=== PATIENT | female | born 1930 | race Caucasian/White ===

== ENCOUNTER 2017-02-06 15:19 | Inpatient (IN) | payer MEDICARE, OTHER ==
[~2017-02-06] VITALS: Ht 165.1 cm; Wt 64.0 kg
[~2017-02-06 15:19] MED LIST: ACCUVITE; ALPRAZOLAM XR0.5 MG PO; AMBIEN 5MG TABLE5 MG PO; AMIODARONE200 MG PO; ANORO IH; ATIVAN 0.50.5 MG/TAB PO; BYSTOLIC10 MG PO; CARDIZEM CD240 MG PO; CELEBREX 200MG200 MG PO; CIPRO 250MG TA250 MG PO; CORDARONE200 MG/TAB PO; COUMADIN; COUMADIN 2MG2 MG/TAB PO; COUMADIN2 MG PO; COZAAR 25MG25 MG/TAB PO; CYMBALTA 20MG20 MG PO; DIGOXIN PO; DILTIAZEM120 MG PO; DIOVAN 12.5 MG-1 TAB PO; DIOVAN HCT 12.51 TA1 PO; DIOVAN80 MG PO; ENALAPRIL2.5 MG PO; FISH OIL CONC1000 MG PO; FLECAINIDE; FLONASE NASAL S16 GM NS; FLUOXETINE10 MG PO; FOSAMAX 70MG TA70 MG PO; FOSAMAX PO; HYZAAR; HYZAAR 12.5 MG-1 TAB PO; IMDUR 60MG60 MG/TAB PO; INCRUSE EL62.5 MCG/A IH; ISORBIDE; K-DUR 10 MEQ T10 MEQ PO; LASIX 20MG TABL20 MG PO; LASIX 40MG TABL40 MG PO; LEVOXYL0.075 MG PO; LOPRESSOR 225 MG/TAB PO; MEPROBAMATE; MEPROBAMATE 400 MG PO; MEPROBAMATE PO; METOPROLOL TART25 MG PO; METOPROLOL25 MG PO; MOBIC7.5 M1 PO; MULTAQ400 MG PO; MULTI VITAMINS1 TAB PO; NASONEX SPRAY17 GM NS; NEXIUM 40MG40 MG PO; NEXIUM40 MG PO; NORCO 325 MG-51 TAB PO; NORVASC 5MG5 MG/TAB PO; OCCUVITE; OCUVITE PO; OCUVITE1 TA1 PO; PAXIL 10MG10 MG PO; PERCOCET 325 MG1 TA2 PO; PRAVACHOL 40MG40 MG PO; PRAVASTATIN40 MG PO; PREMARIN .3MG0.3 MG PO; PREMARIN0.625 MG PO; PROZAC 10MG10 MG PO; RANEXA 500MG T500 MG PO; ROLAIDS 675 MG-1 CT2 PO; RT ADVAIR 228 DISKUS IH; RT ADVAIR 528 DISKUS IH; SYNTHROID 0.0.025 MG PO; SYSTANE 0.3-0.1 EACH OP; TAMBOCOR100 MG PO; TIKOSYN0.25 MG PO; TOPROL XL 25MG25 MG PO; TOPROL XL25 MG PO; TRIAMTERENE AND1 TA1 PO; ULTRAM 50MG TAB50 MG PO; VITAMIN B1 NAT100 MG PO; VITAMIN D32000 I1 PO; WARFARIN SODIUM2 MG PO; XARELTO15 MG PO; XOPENEX HF0.045 MG/A IH; ZANTAC 150MG T150 MG PO; [UNRECOGNIZED DRUG - CODE] PO; [UNRECOGNIZED DRUG - OTHER] PO
[2017-02-06] MEDS ORDERED: COUMADIN 5MG5 MG/TAB PO (15:36)
[2017-02-06] MEDS ORDERED: TOPROL XL 50MG50 MG PO (15:38)
[2017-02-06 16:22] LABS: BASO % 0.2 % (0.0-2.0); GRAN # 11.8 (1.4-6.5); GRAN % 86.1 % (42.2-75.2); HEMOGLOBIN 12.1 g/dl (12.5-16.0); LYMPH # 0.6 (1.2-3.4); LYMPH % 4.1 % (20.0-51.0); MEAN CELL VOLUME 94 fl (80.0-100.0); MEAN CORPUSCULAR HEMOGLOBIN 31 pg (27.0-31.0); MEAN CORPUSCULAR HGB CONC 33 g/dl (33.0-37.0); MEAN PLATELET VOLUME 8.9 fl (7.4-10.4); MONO # 1.2 (0.1-0.6); PLATELET COUNT 228 K/mm3 (130-400); REDCELL DISTRIBUTION WIDTH-CV 14.6 % (11.5-14.5); WHITE BLOOD COUNT 13.7 K/mm3 (4.8-10.8)
[2017-02-06 16:25] LABS: HEMATOCRIT 36.7 % (37.0-47.0)
[2017-02-06 16:30] LABS: INR 2.8 (0.8-3.0); PROTHROMBIN TIME 31.8 SECONDS (9.7-12.8)
[2017-02-06 16:35] LABS: ADJUSTED CALCIUM 9.2 mg/dL (8.4-10.2); CALCIUM 9.2 mg/dL (8.4-10.2); CREATININE, serum 0.85 mg/dL (0.52-1.25); POTASSIUM 4.2 mmol/L (3.4-5.0); TOTAL PROTEIN 7.3 gm/dL (6.4-8.2)
[2017-02-06 17:06] LABS: C-REACTIVE PROTEIN 12.3 mg/dL (0.0-0.9)
[2017-02-06 17:52] LABS: PH 5 (5-8); URINE APPEARANCE Hazy; URINE BACTERIA None Seen /hpf; URINE BILIRUBIN Negative (NEGATIVE); URINE BLOOD 2+ (NEGATIVE); URINE COLOR Amber; URINE GLUCOSE Negative (NEGATIVE); URINE KETONE Trace (NEGATIVE); URINE RBC >50 /hpf; URINE UROBILINOGEN Negative (NEGATIVE)
[2017-02-06 21:05] VITALS: BP 119/68; PULSE 87; TEMP 98.2
[2017-02-06] MEDS ORDERED: RT ADVAIR HFA 412 GM IH (21:54)
[2017-02-06] MEDS ORDERED: ALLEGRA 180MG180 MG PO (21:56)
[2017-02-06] MEDS ORDERED: ELOCON0.1% TP (21:58)
[2017-02-06] MEDS ORDERED: OCUVITE1 TA1 PO (21:59)
[2017-02-06] MEDS ORDERED: COLACE 100100 MG/CAP PO (22:04)
[2017-02-06] MEDS ORDERED: SENNA8.6 MG PO (22:05)
[2017-02-06] MEDS ORDERED: DULCOLAX TAB5 MG PO (22:05)
[2017-02-06] MEDS ORDERED: [UNRECOGNIZED DRUG - OTHER] VG (22:06)
[2017-02-07 04:56] VITALS: BP 149/70; PULSE 94; TEMP 97.3
[2017-02-07 07:23] LABS: MEAN CELL VOLUME 95 fl (80.0-100.0); MEAN CORPUSCULAR HGB CONC 33 g/dl (33.0-37.0); MEAN PLATELET VOLUME 9.5 fl (7.4-10.4); PLATELET COUNT 203 K/mm3 (130-400); PROTHROMBIN TIME 34.1 SECONDS (9.7-12.8); RED BLOOD COUNT 3.61 M/mm3 (4.10-5.30); REDCELL DISTRIBUTION WIDTH-CV 14.8 % (11.5-14.5)
[2017-02-07 07:30] LABS: CALCIUM 8.9 mg/dL (8.4-10.2); CREATININE, serum 0.87 mg/dL (0.52-1.25)
[2017-02-07 07:31] LABS: ADD PATHOLOGY DIFF REVIEW NO; HEMATOCRIT 34.3 % (37.0-47.0); HEMOGLOBIN 11.2 g/dl (12.5-16.0); MEAN CORPUSCULAR HEMOGLOBIN 31 pg (27.0-31.0)
[2017-02-07 08:03] VITALS: BP 151/82; PULSE 84; TEMP 97.2
[2017-02-07 08:23] LABS: ERYTHROCYTE SEDIMENTATION RATE 58 mm/hr (0-30)
[2017-02-07 08:28] LABS: BAND 11 % (0-10); BASOPHIL 1 % (0-2); NEUTROPHILS 76 % (42.0-75.2); PLATELET ESTIMATE NORMAL (NORMAL); TOTAL CELLS COUNTED 100
[2017-02-07 10:24] LABS: SYNOVIAL FL. MONONUCLEAR 8.2 % (0-75); SYNOVIAL FL. POLYMORPHONUCLEAR 91.8 % (0-25); SYNOVIAL FLUID WBC 57268 /mm3 (200-600)
[2017-02-07 10:29] LABS: SYNOVIAL FLUID APPEARANCE CLOUDY; SYNOVIAL FLUID COLOR AMBER
[2017-02-07 11:19] VITALS: BP 124/59; PULSE 91
[2017-02-07 15:17] VITALS: BP 122/60; PULSE 88; TEMP 98.4
[2017-02-07 19:57] VITALS: BP 135/59; PULSE 50; TEMP 98.5
[2017-02-08 00:09] VITALS: BP 146/66; PULSE 97; TEMP 99.8
[2017-02-08 02:55] VITALS: BP 144/89; PULSE 90; TEMP 99.8
[2017-02-08 07:39] LABS: BASO % 0.2 % (0.0-2.0); CALCIUM 8.8 mg/dL (8.4-10.2); CREATININE, serum 0.86 mg/dL (0.52-1.25); EOS % 0.1 % (0-4.0); GRAN # 7.4 (1.4-6.5); GRAN % 74.8 % (42.2-75.2); LYMPH # 0.9 (1.2-3.4); LYMPH % 9.2 % (20.0-51.0); MEAN CELL VOLUME 94 fl (80.0-100.0); MEAN CORPUSCULAR HGB CONC 33 g/dl (33.0-37.0); MEAN PLATELET VOLUME 9.6 fl (7.4-10.4); MONO # 1.5 (0.1-0.6); MONO % 15.1 % (1.7-9.3); PLATELET COUNT 210 K/mm3 (130-400); POTASSIUM 4.2 mmol/L (3.4-5.0); RED BLOOD COUNT 3.57 M/mm3 (4.10-5.30); REDCELL DISTRIBUTION WIDTH-CV 14.8 % (11.5-14.5); WHITE BLOOD COUNT 9.9 K/mm3 (4.8-10.8)
[2017-02-08 08:03] VITALS: BP 155/53; PULSE 89; TEMP 100.1
[2017-02-08 08:27] LABS: HEMATOCRIT 33.7 % (37.0-47.0); MEAN CORPUSCULAR HEMOGLOBIN 31 pg (27.0-31.0)
[2017-02-08 10:31] LABS: INR 2.4 (0.8-3.0); PROTHROMBIN TIME 26.8 SECONDS (9.7-12.8)
[2017-02-08 11:39] VITALS: BP 129/66; PULSE 48; TEMP 97.1
[2017-02-08 16:13] VITALS: BP 145/86; PULSE 63; TEMP 99.2
[2017-02-08 19:14] VITALS: BP 128/74; PULSE 90; TEMP 99.3
[2017-02-09 00:11] VITALS: BP 154/75; PULSE 96; TEMP 99.2
[2017-02-09 03:29] VITALS: BP 140/81; PULSE 104; TEMP 99
[2017-02-09 07:09] LABS: BASO % 0.4 % (0.0-2.0); EOS % 0.1 % (0-4.0); GRAN # 6.3 (1.4-6.5); GRAN % 76.8 % (42.2-75.2); LYMPH # 0.6 (1.2-3.4); LYMPH % 7.7 % (20.0-51.0); MEAN CELL VOLUME 95 fl (80.0-100.0); MEAN CORPUSCULAR HGB CONC 32 g/dl (33.0-37.0); MONO # 1.2 (0.1-0.6); MONO % 14.3 % (1.7-9.3); PLATELET COUNT 236 K/mm3 (130-400); RED BLOOD COUNT 3.44 M/mm3 (4.10-5.30); REDCELL DISTRIBUTION WIDTH-CV 14.6 % (11.5-14.5); WHITE BLOOD COUNT 8.3 K/mm3 (4.8-10.8)
[2017-02-09 07:11] LABS: INR 1.9 (0.8-3.0); PROTHROMBIN TIME 21.4 SECONDS (9.7-12.8)
[2017-02-09 07:18] LABS: HEMATOCRIT 32.7 % (37.0-47.0); HEMOGLOBIN 10.6 g/dl (12.5-16.0); MEAN CORPUSCULAR HEMOGLOBIN 31 pg (27.0-31.0)
[2017-02-09 07:48] VITALS: BP 153/72; PULSE 50; TEMP 98.3
[2017-02-09 11:14] VITALS: BP 179/98; PULSE 105; TEMP 98.2
[2017-02-09 16:09] VITALS: BP 92/76; PULSE 102; TEMP 98.9
[2017-02-09 18:26] VITALS: BP 166/79; PULSE 104
[2017-02-09 20:06] LABS: INR 1.6 (0.8-3.0); PROTHROMBIN TIME 18.4 SECONDS (9.7-12.8)
[2017-02-10] VITALS (10 sets, daily range): BP systolic 127–167; BP diastolic 72–92; PULSE 89–104; TEMP 98–99.4
[2017-02-10 06:36] LABS: INR 1.4 (0.8-3.0); PROTHROMBIN TIME 15.9 SECONDS (9.7-12.8)
[2017-02-10 06:42] LABS: BASO % 0.4 % (0.0-2.0); EOS % 0.4 % (0-4.0); GRAN # 5.6 (1.4-6.5); GRAN % 72.4 % (42.2-75.2); LYMPH # 0.7 (1.2-3.4); LYMPH % 8.8 % (20.0-51.0); MEAN CELL VOLUME 94 fl (80.0-100.0); MEAN CORPUSCULAR HGB CONC 32 g/dl (33.0-37.0); MEAN PLATELET VOLUME 9.5 fl (7.4-10.4); MONO # 1.3 (0.1-0.6); MONO % 17.1 % (1.7-9.3); PLATELET COUNT 242 K/mm3 (130-400); RED BLOOD COUNT 3.38 M/mm3 (4.10-5.30); REDCELL DISTRIBUTION WIDTH-CV 14.6 % (11.5-14.5); WHITE BLOOD COUNT 7.8 K/mm3 (4.8-10.8)
[2017-02-10 06:49] LABS: CALCIUM 8.4 mg/dL (8.4-10.2); CREATININE, serum 0.68 mg/dL (0.52-1.25); MAGNESIUM 1.8 mg/dL (1.6-2.3); POTASSIUM 3.6 mmol/L (3.4-5.0)
[2017-02-10 07:03] LABS: HEMATOCRIT 31.7 % (37.0-47.0); HEMOGLOBIN 10.2 g/dl (12.5-16.0); MEAN CORPUSCULAR HEMOGLOBIN 30 pg (27.0-31.0)
[2017-02-11 03:27] VITALS: BP 122/61; PULSE 94; TEMP 99.1
[2017-02-11 07:59] VITALS: BP 138/71; PULSE 128; TEMP 98.4
[2017-02-11 08:55] LABS: MEAN CELL VOLUME 96 fl (80.0-100.0); MEAN CORPUSCULAR HGB CONC 32 g/dl (33.0-37.0); MEAN PLATELET VOLUME 9.3 fl (7.4-10.4); PLATELET COUNT 291 K/mm3 (130-400); RED BLOOD COUNT 3.26 M/mm3 (4.10-5.30); REDCELL DISTRIBUTION WIDTH-CV 14.6 % (11.5-14.5); WHITE BLOOD COUNT 7.2 K/mm3 (4.8-10.8)
[2017-02-11 08:56] LABS: HEMATOCRIT 31.2 % (37.0-47.0); HEMOGLOBIN 10.1 g/dl (12.5-16.0); MEAN CORPUSCULAR HEMOGLOBIN 31 pg (27.0-31.0)
[2017-02-11 08:57] LABS: ADD PATHOLOGY DIFF REVIEW NO
[2017-02-11 09:09] LABS: INR 1.3 (0.8-3.0)
[2017-02-11 10:29] LABS: ANISOCYTOSIS 1+; EOSINOPHIL 2 % (0-4); NEUTROPHILS 76 % (42.0-75.2); PLATELET ESTIMATE NORMAL (NORMAL); TOTAL CELLS COUNTED 100
[2017-02-11 12:07] VITALS: BP 121/61; PULSE 100
[2017-02-11 16:07] VITALS: BP 128/69; PULSE 88; TEMP 98.9
[2017-02-11 20:00] VITALS: BP 145/84; PULSE 108
[2017-02-11 23:28] LABS: PH 5 (5-8); URINE APPEARANCE Cloudy; URINE BACTERIA Rare /hpf; URINE BILIRUBIN Negative (NEGATIVE); URINE BLOOD Negative (NEGATIVE); URINE COLOR Amber; URINE GLUCOSE Negative (NEGATIVE); URINE KETONE Negative (NEGATIVE); URINE RBC 20-50 /hpf; URINE UROBILINOGEN Negative (NEGATIVE)
[2017-02-12 00:40] VITALS: BP 131/59; PULSE 107; TEMP 97.8
[2017-02-12 04:10] VITALS: BP 125/90; PULSE 115; TEMP 99
[2017-02-12 06:53] LABS: MEAN CELL VOLUME 95 fl (80.0-100.0); MEAN CORPUSCULAR HGB CONC 33 g/dl (33.0-37.0); MEAN PLATELET VOLUME 10.4 fl (7.4-10.4); PLATELET COUNT 202 K/mm3 (130-400); RED BLOOD COUNT 3.25 M/mm3 (4.10-5.30); REDCELL DISTRIBUTION WIDTH-CV 14.6 % (11.5-14.5); WHITE BLOOD COUNT 8.3 K/mm3 (4.8-10.8)
[2017-02-12 06:56] LABS: INR 1.3 (0.8-3.0); PROTHROMBIN TIME 14.5 SECONDS (9.7-12.8)
[2017-02-12 07:00] LABS: HEMATOCRIT 30.8 % (37.0-47.0); HEMOGLOBIN 10.1 g/dl (12.5-16.0); MEAN CORPUSCULAR HEMOGLOBIN 31 pg (27.0-31.0)
[2017-02-12 07:01] LABS: ADD PATHOLOGY DIFF REVIEW NO
[2017-02-12 07:06] LABS: CALCIUM 8.4 mg/dL (8.4-10.2); CREATININE, serum 0.76 mg/dL (0.52-1.25); POTASSIUM 3.5 mmol/L (3.4-5.0)
[2017-02-12 08:28] LABS: BAND 11 % (0-10); EOSINOPHIL 2 % (0-4); NEUTROPHILS 57 % (42.0-75.2); TOTAL CELLS COUNTED 100
[2017-02-12 08:30] LABS: PLATELET ESTIMATE NORMAL (NORMAL)
[2017-02-12 08:44] VITALS: BP 128/60; PULSE 96; TEMP 98.2
[2017-02-12] MEDS ORDERED: NORCO 325 MG-51 TAB PO (13:24)
[2017-02-12] MEDS ORDERED: COZAAR 25MG25 MG/TAB PO (13:24)
[2017-02-12 13:36] VITALS: BP 113/62; PULSE 107; TEMP 98.2
[2017-02-12] MEDS ORDERED: TOPROL XL 50MG50 MG PO (13:46)
[2017-02-12 15:32] VITALS: BP 113/62; PULSE 107; TEMP 98.2
== END 2017-02-12 15:30 | DRG 488 ==
LOC: COL.ER 15:19 → MEDICAL 19:13
PROVIDERS: Emergency Medicine; Family Medicine; Internal Medicine; Orthopaedic Surgery
PROC: 0S9D3ZX Drainage of Left Knee Joint, Percutaneous Approach, Diagnostic (ICD-10-PCS; 2017-02-07)
PROC: 0SBD4ZZ Excision of Left Knee Joint, Percutaneous Endoscopic Approach (ICD-10-PCS; principal; 2017-02-10 07:30)
DX: M00.9 Pyogenic arthritis, unspecified (principal); I50.32 Chronic diastolic (congestive) heart failure; M65.9 Synovitis and tenosynovitis, unspecified; I11.0 Hypertensive heart disease with heart failure; I48.2 Chronic atrial fibrillation; M25.462 Effusion, left knee; M17.12 Unilateral primary osteoarthritis, left knee; Z79.01 Long term (current) use of anticoagulants; I08.3 Combined rheumatic disorders of mitral, aortic and tricuspid valves; I27.2 Other secondary pulmonary hypertension; R40.0 Somnolence; R41.0 Disorientation, unspecified; T42.6X5A Adverse effect of other antiepileptic and sedative-hypnotic drugs, initial encounter; T39.1X5A Adverse effect of 4-Aminophenol derivatives, initial encounter
CPT/HCPCS: 99222-AI; 99232-AI; 99233-AI; 99239; A9284; C1751; J0690; J0696; J1644; J1650; J1940; J2270; J2405; J2704; J3010; J3370; J7030; J7050; J7120

== ENCOUNTER → 2017-02-18 | Outpatient (CLI) | payer MEDICARE, OTHER ==
[~2017-02-18] MED LIST changes: +ALLEGRA 180MG180 MG PO; +COLACE 100100 MG/CAP PO; +COUMADIN 5MG5 MG/TAB PO; +DULCOLAX TAB5 MG PO; +ELOCON0.1% TP; +RT ADVAIR HFA 412 GM IH; +SENNA8.6 MG PO; +TOPROL XL 50MG50 MG PO; +[UNRECOGNIZED DRUG - OTHER] VG
[2017-02-18 05:43] LABS: ALBUMIN 2.7 gm/dL (3.5-5.0); BILIRUBIN,TOTAL 0.6 mg/dL (0.0-1.0); C-REACTIVE PROTEIN 5.9 mg/dL (0.0-0.9); CREATININE, serum 0.82 mg/dL (0.52-1.25); POTASSIUM 4.3 mmol/L (3.4-5.0); TOTAL PROTEIN 5.3 gm/dL (6.4-8.2)
[2017-02-18 05:53] LABS: VANCOMYCIN TROUGH 34.9 ug/mL (7.00-20.00)
== END ==
LOC: ZCOL.LAB 04:00
PROVIDERS: Family Medicine
DX: I10 Essential (primary) hypertension (principal); E03.8 Other specified hypothyroidism; I50.9 Heart failure, unspecified; Z22.322 Carrier or suspected carrier of Methicillin resistant Staphylococcus aureus

== ENCOUNTER → 2017-02-19 | Outpatient (CLI) | payer MEDICARE, OTHER ==
[2017-02-19 06:20] LABS: BASO # 0.1 (0.0-0.2); EOS # 0.3 (0.0-0.7); EOS % 2.9 % (0-4.0); GRAN # 6.3 (1.4-6.5); GRAN % 69.4 % (42.2-75.2); LYMPH # 1.3 (1.2-3.4); LYMPH % 13.8 % (20.0-51.0); MEAN CELL VOLUME 96 fl (80.0-100.0); MEAN CORPUSCULAR HGB CONC 33 g/dl (33.0-37.0); MONO % 11.2 % (1.7-9.3); PLATELET COUNT 539 K/mm3 (130-400); RED BLOOD COUNT 2.96 M/mm3 (4.10-5.30); REDCELL DISTRIBUTION WIDTH-CV 14.5 % (11.5-14.5); WHITE BLOOD COUNT 9.1 K/mm3 (4.8-10.8)
[2017-02-19 06:21] LABS: HEMATOCRIT 28.3 % (37.0-47.0); HEMOGLOBIN 9.4 g/dl (12.5-16.0); MEAN CORPUSCULAR HEMOGLOBIN 32 pg (27.0-31.0)
[2017-02-19 06:33] LABS: ADJUSTED CALCIUM 9.8 mg/dL (8.4-10.2); ALANINE AMINOTRANSFERASE 23 U/L (9-52); ALBUMIN 2.8 gm/dL (3.5-5.0); ALKALINE PHOSPHATASE 81 U/L (50-136); ANION GAP 10 mmol/L (7-16); BILIRUBIN,TOTAL 0.6 mg/dL (0.0-1.0); BLOOD UREA NITROGEN 13 mg/dL (7-17); C-REACTIVE PROTEIN 4.5 mg/dL (0.0-0.9); CALCIUM 8.8 mg/dL (8.4-10.2); CARBON DIOXIDE 25 mmol/L (22-30); CHLORIDE 101 mmol/L (98-107); CREATININE, serum 0.82 mg/dL (0.52-1.25); GLUCOSE 94 mg/dL (74-106); POTASSIUM 4.5 mmol/L (3.4-5.0); SODIUM 137 mmol/L (137-145); TOTAL PROTEIN 5.3 gm/dL (6.4-8.2)
[2017-02-19 06:41] LABS: VANCOMYCIN TROUGH 26.97 ug/mL (7.00-20.00)
[2017-02-19 06:49] LABS: ERYTHROCYTE SEDIMENTATION RATE 80 mm/hr (0-30)
== END ==
LOC: ZCOL.LAB 06:02
PROVIDERS: Family Medicine
DX: J44.9 Chronic obstructive pulmonary disease, unspecified (principal); Z51.81 Encounter for therapeutic drug level monitoring; Z79.890 Hormone replacement therapy

== ENCOUNTER → 2017-02-25 | Outpatient (REF) | LOC: ZCOL.LAB 03:37 | DX: Z01.89 Encounter for other specified special examinations (principal) ==

== ENCOUNTER 2017-02-26 14:02 | Outpatient (CLI) | payer MEDICARE, OTHER ==
[2017-02-26 14:24] VITALS: BP 145/75; PULSE 78; TEMP 97.9
== END 2017-02-26 14:46 | disposition home or self-care (01) ==
LOC: EUO 14:02
DX: M00.9 Pyogenic arthritis, unspecified (principal); Z22.322 Carrier or suspected carrier of Methicillin resistant Staphylococcus aureus

== ENCOUNTER → 2017-02-26 | Outpatient (CLI) | payer MEDICARE, OTHER | LOC: ZCOL.LAB 16:06 | DX: Z01.89 Encounter for other specified special examinations (principal) ==

== ENCOUNTER → 2017-02-26 | Outpatient (REF) ==
[2017-02-26 04:39] LABS: MEAN CELL VOLUME 95 fl (80.0-100.0); MEAN CORPUSCULAR HGB CONC 32 g/dl (33.0-37.0); MEAN PLATELET VOLUME 8.7 fl (7.4-10.4); PLATELET COUNT 412 K/mm3 (130-400); RED BLOOD COUNT 3.09 M/mm3 (4.10-5.30); REDCELL DISTRIBUTION WIDTH-CV 14.6 % (11.5-14.5); WHITE BLOOD COUNT 5.8 K/mm3 (4.8-10.8)
[2017-02-26 04:52] LABS: HEMATOCRIT 29.2 % (37.0-47.0); HEMOGLOBIN 9.3 g/dl (12.5-16.0); MEAN CORPUSCULAR HEMOGLOBIN 30 pg (27.0-31.0)
[2017-02-26 05:05] LABS: ERYTHROCYTE SEDIMENTATION RATE 81 mm/hr (0-30)
== END ==
LOC: ZCOL.LAB 04:36
PROVIDERS: Family Medicine
DX: Z01.89 Encounter for other specified special examinations (principal)

== ENCOUNTER → 2017-03-02 | Outpatient (REF) | LOC: ZCOL.LAB 12:33 | DX: Z01.89 Encounter for other specified special examinations (principal) ==

== ENCOUNTER 2017-07-23 15:33 | Outpatient (RCR) | payer MEDICARE, OTHER | END 2017-07-26 16:01 | LOC: MKS.ESL.PT 15:33 | DX: R06.02 Shortness of breath (principal) | CPT/HCPCS: G8979-GP; G8980-GP ==

== ENCOUNTER → 2017-08-13 | Outpatient (CLI) | payer MEDICARE, OTHER | LOC: COL.PUL 07-23 10:30 | DX: R06.02 Shortness of breath (principal) ==

== ENCOUNTER → 2017-08-16 | Outpatient (CLI) | payer MEDICARE, OTHER | LOC: COL.PUL 07-28 08:00 | DX: I51.7 Cardiomegaly (principal); I73.9 Peripheral vascular disease, unspecified; M89.8X8 Other specified disorders of bone, other site; M85.80 Other specified disorders of bone density and structure, unspecified site; M40.294 Other kyphosis, thoracic region; Z87.312 Personal history of (healed) stress fracture ==

== ENCOUNTER 2017-09-03 17:40 | Emergency (ER) | payer MEDICARE, OTHER ==
[~2017-09-03] VITALS: Ht 170.2 cm; Wt 59.5 kg
[2017-09-03 17:42] VITALS: TEMP 98.6
[2017-09-03 18:31] LABS: INFLUENZA A NEGATIVE; INFLUENZA B NEGATIVE
[2017-09-03] MEDS ORDERED: ZITHROMAX Z PA250 MG PO (18:34)
[2017-09-03 18:48] VITALS: BP 126/76; PULSE 82
== END 2017-09-03 18:48 | disposition home or self-care (01) ==
LOC: COL.ER 17:40
PROVIDERS: Family Medicine
DX: J20.9 Acute bronchitis, unspecified (principal); I48.91 Unspecified atrial fibrillation; Z79.01 Long term (current) use of anticoagulants

== ENCOUNTER → 2018-07-12 | Outpatient (CLI) | payer MEDICARE, OTHER ==
[~2018-07-12] MED LIST changes: +COUMADIN4 MG PO; +DEMADEX 20MG20 M1 PO; +PROCARDIA20 MG PO; +SYNTHROID0.075 MG/T PO; +VITAMIN D32000 IU PO; +XALATAN EYE DROPS OD; +ZITHROMAX Z PA250 MG PO
== END ==
LOC: COL.VAS 14:38
DX: I27.20 Pulmonary hypertension, unspecified (principal); I34.0 Nonrheumatic mitral (valve) insufficiency; I35.2 Nonrheumatic aortic (valve) stenosis with insufficiency; I07.1 Rheumatic tricuspid insufficiency

== ENCOUNTER 2018-07-18 15:30 | Outpatient (RCR) | payer MEDICARE, OTHER | END 2018-07-26 11:41 | disposition home or self-care (01) | LOC: WSST 15:30 | DX: I69.328 Other speech and language deficits following cerebral infarction (principal); I69.398 Other sequelae of cerebral infarction | CPT/HCPCS: G8999-GN; G9158-GN; G9186-GN ==

== ENCOUNTER 2018-08-31 05:18 | Observation (INO) | payer MEDICARE, OTHER ==
[~2018-08-31] VITALS: Ht 165.1 cm; Wt 58.0 kg
[2018-08-31 06:12] LABS: BASO % 0.5 % (0.0-2.0); EOS % 0.5 % (0-4.0); GRAN % 79.1 % (42.2-75.2); HEMOGLOBIN 11.3 g/dl (12.5-16.0); LYMPH # 0.8 (1.2-3.4); LYMPH % 9.1 % (20.0-51.0); MEAN CELL VOLUME 97 fl (80.0-100.0); MEAN CORPUSCULAR HEMOGLOBIN 31 pg (27.0-31.0); MEAN CORPUSCULAR HGB CONC 32 g/dl (33.0-37.0); MEAN PLATELET VOLUME 8.4 fl (7.4-10.4); MONO # 0.9 (0.1-0.6); MONO % 10.1 % (1.7-9.3); PLATELET COUNT 275 K/mm3 (130-400); RED BLOOD COUNT 3.68 M/mm3 (4.10-5.30); REDCELL DISTRIBUTION WIDTH-CV 15.6 % (11.5-14.5)
[2018-08-31 06:14] LABS: HEMATOCRIT 35.6 % (37.0-47.0)
[2018-08-31 06:20] LABS: ARTERIAL BLOOD GAS PCO2 33.8 mmHg (35-45); ARTERIAL BLOOD GAS pH 7.47 (7.35-7.45)
[2018-08-31 06:21] LABS: ARTERIAL BLD GAS O2 SATURATION 88.7 % (92-100); ARTERIAL BLD GAS TCO2 CT 25.2; ARTERIAL BLOOD GAS BASE EXCESS 0.9 (-2-2); ARTERIAL BLOOD GAS HCO3 24.2 meq/L (22-26); ARTERIAL BLOOD GAS PO2 55.5 mmHg (80-100)
[2018-08-31 06:23] LABS: ALBUMIN 3.9 gm/dL (3.5-5.0); BILIRUBIN,TOTAL 0.6 mg/dL (0.0-1.0); CALCIUM 9.5 mg/dL (8.4-10.2); CREATININE, serum 0.85 mg/dL (0.52-1.25); INR 2.5 (0.8-3.0); POTASSIUM 3.8 mmol/L (3.4-5.0); TOTAL PROTEIN 7.1 gm/dL (6.4-8.2)
[2018-08-31] MEDS ORDERED: LEVOXYL0.025 MG PO (06:26)
[2018-08-31 11:06] VITALS: BP 172/108; PULSE 86; TEMP 97.2
[2018-08-31 16:00] VITALS: BP 134/64; PULSE 77; TEMP 98.1
[2018-08-31 22:28] VITALS: BP 108/54; PULSE 85; TEMP 98.4
[2018-09-01] VITALS: BP 117/68; PULSE 81; TEMP 98.5
[2018-09-01 04:35] VITALS: BP 135/56; PULSE 74; TEMP 99.6
[2018-09-01 07:19] VITALS: BP 151/80; PULSE 51; TEMP 98
[2018-09-01 07:26] LABS: HEMOGLOBIN 11.1 g/dl (12.5-16.0); MEAN CELL VOLUME 96 fl (80.0-100.0); MEAN CORPUSCULAR HEMOGLOBIN 30 pg (27.0-31.0); MEAN CORPUSCULAR HGB CONC 32 g/dl (33.0-37.0); MEAN PLATELET VOLUME 9.1 fl (7.4-10.4); PLATELET COUNT 298 K/mm3 (130-400); RED BLOOD COUNT 3.65 M/mm3 (4.10-5.30); REDCELL DISTRIBUTION WIDTH-CV 15.6 % (11.5-14.5)
[2018-09-01 07:34] LABS: HEMATOCRIT 35.2 % (37.0-47.0)
[2018-09-01 07:37] LABS: CALCIUM 9.1 mg/dL (8.4-10.2); CREATININE, serum 0.78 mg/dL (0.52-1.25); POTASSIUM 3.8 mmol/L (3.4-5.0)
[2018-09-01 07:50] LABS: TROPONIN-I 0.013 ng/mL (0.000-0.034)
[2018-09-01 08:07] LABS: TSH w REFLEX 2.38 uIU/mL (0.465-4.680)
[2018-09-01 08:14] LABS: BAND 1 % (0-10); EOSINOPHIL 5 % (0-4); LYMPHOCYTE 18 % (20.0-51.0); NEUTROPHILS 68 % (42.0-75.2)
[2018-09-01 08:15] LABS: OVALOCYTES 1+; PLATELET ESTIMATE NORMAL (NORMAL)
[2018-09-01 11:44] VITALS: BP 96/55; PULSE 84; TEMP 97.9
[2018-09-01] MEDS ORDERED: ALDACTONE 25MG25 M1 PO (13:49)
[2018-09-01 15:04] VITALS: BP 134/69; PULSE 90; TEMP 98.1
== END 2018-09-01 17:08 | disposition home or self-care (01) ==
LOC: COL.ER 05:18 → MEDICAL 08:15
PROVIDERS: Emergency Medicine; Physician Assistant
DX: I11.0 Hypertensive heart disease with heart failure (principal); I50.31 Acute diastolic (congestive) heart failure; J90 Pleural effusion, not elsewhere classified; I48.2 Chronic atrial fibrillation; J44.9 Chronic obstructive pulmonary disease, unspecified; E78.5 Hyperlipidemia, unspecified; E03.9 Hypothyroidism, unspecified; I08.3 Combined rheumatic disorders of mitral, aortic and tricuspid valves; I27.20 Pulmonary hypertension, unspecified; Z90.49 Acquired absence of other specified parts of digestive tract; Z90.710 Acquired absence of both cervix and uterus; Z95.0 Presence of cardiac pacemaker; Z79.01 Long term (current) use of anticoagulants; Z86.73 Personal history of transient ischemic attack (TIA), and cerebral infarction without residual deficits
CPT/HCPCS: 99222-AI; G0378; G8978-GP; G8979-GP; J1940

== ENCOUNTER → 2018-11-11 | Outpatient (CLI) | payer MEDICARE, OTHER ==
[~2018-11-11] MED LIST changes: +ALDACTONE 25MG25 M1 PO; +LEVOXYL0.025 MG PO
== END ==
LOC: COL.PUL 08-03 11:40
DX: R06.02 Shortness of breath (principal)

== ENCOUNTER → 2019-01-06 | Outpatient (CLI) | payer MEDICARE, OTHER | LOC: COL.RAD 13:00 | DX: Z01.812 Encounter for preprocedural laboratory examination (principal); G31.9 Degenerative disease of nervous system, unspecified; I67.82 Cerebral ischemia | CPT/HCPCS: Q9967 ==

== ENCOUNTER 2019-04-06 21:52 | Inpatient (IN) | payer MEDICARE, OTHER ==
[~2019-04-06] VITALS: Ht 157.5 cm; Wt 57.7 kg
[2019-04-06 22:15] LABS: BASO % 0.1 % (0.0-2.0); GRAN # 7.6 (1.4-6.5); GRAN % 84.5 % (42.2-75.2); HEMOGLOBIN 11.2 g/dl (12.5-16.0); LYMPH # 0.8 (1.2-3.4); LYMPH % 9.3 % (20.0-51.0); MEAN CELL VOLUME 96 fl (80.0-100.0); MEAN CORPUSCULAR HEMOGLOBIN 31 pg (27.0-31.0); MEAN CORPUSCULAR HGB CONC 33 g/dl (33.0-37.0); MONO # 0.5 (0.1-0.6); MONO % 5.1 % (1.7-9.3); PLATELET COUNT 312 K/mm3 (130-400); RED BLOOD COUNT 3.58 M/mm3 (4.10-5.30); REDCELL DISTRIBUTION WIDTH-CV 13.9 % (11.5-14.5)
[2019-04-06 22:16] LABS: HEMATOCRIT 34.3 % (37.0-47.0)
[2019-04-06 22:20] LABS: INR 1.9 (0.8-3.0); PROTHROMBIN TIME 22.8 SECONDS (9.7-12.8)
[2019-04-06 22:24] LABS: ALANINE AMINOTRANSFERASE 12 U/L (9-52); ALBUMIN 4.5 gm/dL (3.5-5.0); ALKALINE PHOSPHATASE 95 U/L (50-136); ANION GAP 12 mmol/L (7-16); AST,SGOT 25 U/L (15-37); BILIRUBIN,TOTAL 0.2 mg/dL (0.0-1.0); BLOOD UREA NITROGEN 46 mg/dL (7-17); CALCIUM 9.8 mg/dL (8.4-10.2); CARBON DIOXIDE 27 mmol/L (22-30); CHLORIDE 97 mmol/L (98-107); CREATININE, serum 1.23 (0.52-1.25); GLUCOSE 154 mg/dL (74-106); POTASSIUM 4.4 mmol/L (3.4-5.0); SODIUM 137 mmol/L (137-145); TOTAL PROTEIN 7.9 gm/dL (6.4-8.2)
[2019-04-06 22:35] LABS: TROPONIN-I < 0.012 ng/mL (0.000-0.035)
[2019-04-07] VITALS (7 sets, daily range): BP systolic 112–154; BP diastolic 53–88; PULSE 59–93; TEMP 97.9–98.5
--- NOTE | 2019-04-07 01:40 | NUR ---
RECEIVED PATIENT VIA STRETCHER FROM ED. IS ALERT AND ORIENTED X3. DENIES PAIN TO RT HIP. HAS PAIN TO CHEST FROM FALL AT HOME. HAS SKIN TEAR TO RIGHT ELBOW WITH BRUISING. TRANSFERS FROM CART TO BED WITHOUT DIFFICULTY. SL TO LEFT AC WITHOUT REDNESS OR SWELLING.
[2019-04-07 02:20] LABS: PRE ALBUMIN 33.9 mg/dL (17.6-36.0)
[2019-04-07 02:32] LABS: TSH w REFLEX 1.13 uIU/mL (0.465-4.680)
[2019-04-07] MEDS ORDERED: SYNTHROID0.075 MG/T PO (02:55)
[2019-04-07] MEDS ORDERED: DULCOLAX TAB5 MG PO (02:56)
[2019-04-07] MEDS ORDERED: ACIDOPHILIS PO (02:57)
[2019-04-07] MEDS ORDERED: COLACE 100100 MG/CAP PO (02:58)
[2019-04-07] MEDS ORDERED: SENNA-LAX8.6 MG PO (03:06)
--- NOTE | 2019-04-07 03:06 | NUR ---
REPORTS PAIN TO MID CHEST, MORPHINE 2MG IVP AT THIS TIME, IVF CONNECTED AND INFUSING WITHOUT REDNESS OR SWELLING.
[2019-04-07] MEDS ORDERED: PRENATAL PLUS PO (03:08)
[2019-04-07] MEDS ORDERED: ALLEGRA 180MG180 MG PO (03:16)
[2019-04-07] MEDS ORDERED: ROLAIDS 675 MG-1 CT2 PO (03:17)
[2019-04-07] MEDS ORDERED: NASONEX SPRAY17 GM NS ×2 (03:18→04:48)
--- NOTE | 2019-04-07 03:31 | NUR ---
OBTAINED UA, PATIENT TRANSFERS TO BSC WITH ONE ASSIST.
[2019-04-07 03:36] LABS: PH 7 (5-8); SQUAMOUS EPITHELIAL 0-2 /hpf; URINE APPEARANCE Clear; URINE BACTERIA None Seen /hpf; URINE BILIRUBIN Negative (NEGATIVE); URINE BLOOD Negative (NEGATIVE); URINE COLOR Yellow; URINE GLUCOSE Negative (NEGATIVE); URINE KETONE Negative (NEGATIVE); URINE LEUKOCYTE ESTERASE Negative (NEGATIVE); URINE NITRATE Negative (NEGATIVE); URINE PROTEIN(semi-quant) Negative (NEGATIVE); URINE RBC 0-2 /hpf; URINE UROBILINOGEN Negative (NEGATIVE)
[2019-04-07 03:44] LABS: COLLECTION METHOD CLEAN CATCH
[2019-04-07] MEDS ORDERED: XALATAN EYE DROPS OU (04:46)
[2019-04-07] MEDS ORDERED: DEMADEX10 MG PO (04:51)
[2019-04-07 06:32] LABS: BASO % 0.1 % (0.0-2.0); GRAN # 12.4 (1.4-6.5); GRAN % 86.9 % (42.2-75.2); LYMPH # 0.6 (1.2-3.4); LYMPH % 3.8 % (20.0-51.0); MEAN CELL VOLUME 95 fl (80.0-100.0); MEAN CORPUSCULAR HGB CONC 33 g/dl (33.0-37.0); MEAN PLATELET VOLUME 9.4 fl (7.4-10.4); MONO # 1.2 (0.1-0.6); MONO % 8.7 % (1.7-9.3); PLATELET COUNT 251 K/mm3 (130-400); RED BLOOD COUNT 3.12 M/mm3 (4.10-5.30); REDCELL DISTRIBUTION WIDTH-CV 14.2 % (11.5-14.5)
[2019-04-07 06:38] LABS: HEMATOCRIT 29.6 % (37.0-47.0); HEMOGLOBIN 9.7 g/dl (12.5-16.0); MEAN CORPUSCULAR HEMOGLOBIN 31 pg (27.0-31.0)
[2019-04-07 06:44] LABS: INR 2.2 (0.8-3.0)
[2019-04-07 06:46] LABS: ALBUMIN 3.7 gm/dL (3.5-5.0); BILIRUBIN,TOTAL 0.3 mg/dL (0.0-1.0); CALCIUM 9.1 mg/dL (8.4-10.2); CREATININE, serum 1.04 (0.52-1.25); POTASSIUM 4.3 mmol/L (3.4-5.0); TOTAL PROTEIN 6.6 gm/dL (6.4-8.2)
--- NOTE | 2019-04-07 07:00 | NUR ---
Dr Thomson in to see patient and talk with her regarding surgery, bedside shift report received from Brittany RN, heparin drip started at this time
--- NOTE | 2019-04-07 08:00 | NUR ---
sitting up in bed eating breakfast
--- NOTE | 2019-04-07 09:00 | NUR ---
full assessment completed, see interventions for further info, Dr Grace and care team in to see patient, medicated with vitamin K 5mg po and other meds given
--- NOTE | 2019-04-07 09:30 | NUR ---
c/o pain to chest area, medicated with hydrocodone 5mg 1 tab
--- NOTE | 2019-04-07 10:33 | NUR ---
SW met with patient to discuss discharge plan. Patient lives at home alone here in [place]. Patient's PCP is Dr Butler and she obtains prescriptions from [facility]. Patient reports she has a caregiver through [facility] that visits patient every day for 3-4 hours. Patient reports she does not normally use any medical equipment. Patient reports she does have a DPOA-HC. SW requested patient inquire if her caregiver can provide a copy for the chart. SW spoke with patient about patient likely requiring post acute rehab due to her hip fracture. SW explained the options for post acute rehab (SNF vs IPR). Patient reports she has been to [facility] in the past but would like to discuss the options for post acute rehab with her caregiver later today. SW provided medicare.gov resource list for patient to review with her caregiver. Patient also reports she will contact her granddaughter that lives in [place] about discharge plan. SW will follow up with patient later today.
--- NOTE | 2019-04-07 10:50 | NUR ---
resting in bed, assisted onto bedpan by PRESS OPERATOR CARBON BLOCKS, states the pain pill has helped the chest pain
--- NOTE | 2019-04-07 11:14 | NUR ---
Dr Núñez in to see patient
--- NOTE | 2019-04-07 11:36 | NUR ---
Dr Curry in to see patient
--- NOTE | 2019-04-07 12:07 | NUR ---
appears to be sleeping, eyes closed, resp quiet and easy
--- NOTE | 2019-04-07 12:54 | NUR ---
Don, HALL TENDER in to see patient
--- NOTE | 2019-04-07 13:25 | NUR ---
results of HepXa reported and rate will remain the same
--- NOTE | 2019-04-07 13:45 | NUR ---
resting in bed ready to eat lunch
--- NOTE | 2019-04-07 14:55 | NUR ---
awake and visiting with friends, denies needs
--- NOTE | 2019-04-07 15:03 | NUR ---
SW followed up with patient about post acute rehab options. Patient reported she has not decided where she would like SW to fax a referral and would prefer SW to follow up tomorrow. IZAIAH will leave a note for weekend SW to follow up with patient tomorrow 04/08.
--- NOTE | 2019-04-07 16:47 | NUR ---
DISPLAY MECHANIC assited her on bed walker, she states she is just tired, will limit visitors per her request so she can try and sleep, patient is in agreement with this
--- NOTE | 2019-04-07 17:30 | NUR ---
resting in bed, assisted her with ordering supper
--- NOTE | 2019-04-07 18:17 | NUR ---
sitting up in bed eating supper, visiting with friends
--- NOTE | 2019-04-07 18:50 | NUR ---
bedside shift report given to RITESH Soto
--- NOTE | 2019-04-07 20:00 | NUR ---
PATIENT IN BED, HAS VISITORS AT BEDSIDE. RE-DRESSED SKIN TEAR TO RIGHT ELBOW, NOTED PURPLE BRUISING. HAS IV HEPARIN DRIP AT 10CC/HR TO LEFT AC, NO REDNESS OR SWELLING NOTED. VOIDING PER BEDPAN. DENIES PAIN TO RIGHT HIP AND FEELS CHEST PAIN IS IMPROVING. IS AWARE SHE WILL BE NPO FOR HIP SURGERY IN AM.
--- NOTE | 2019-04-07 21:00 | NUR ---
TAKES HS MEDS, DOES NOT WANT ANY STOOL SOFTNERS OR LAXATIVES TONIGHT SINCE SURGERY IS TOMORROW.
[2019-04-08] VITALS (15 sets, daily range): BP systolic 116–173; BP diastolic 49–106; PULSE 73–119; TEMP 97.7–98.9
--- NOTE | 2019-04-08 03:00 | NUR ---
HEPARIN DRIP STOPPED AT THIS TIME PER DOCTORS ORDER.
[2019-04-08 06:29] LABS: MEAN CELL VOLUME 95 fl (80.0-100.0); MEAN CORPUSCULAR HGB CONC 33 g/dl (33.0-37.0); MEAN PLATELET VOLUME 9.3 fl (7.4-10.4); PLATELET COUNT 229 K/mm3 (130-400); REDCELL DISTRIBUTION WIDTH-CV 14.3 % (11.5-14.5)
[2019-04-08 06:36] LABS: HEMATOCRIT 30.5 % (37.0-47.0); HEMOGLOBIN 9.9 g/dl (12.5-16.0); MEAN CORPUSCULAR HEMOGLOBIN 31 pg (27.0-31.0)
[2019-04-08 06:37] LABS: INR 1.1 (0.8-3.0)
[2019-04-08 06:39] LABS: CALCIUM 8.9 mg/dL (8.4-10.2); CREATININE, serum 1.04 (0.52-1.25); POTASSIUM 4.3 mmol/L (3.4-5.0)
[2019-04-08 07:21] LABS: BAND 10 % (0-10); EOSINOPHIL 1 % (0-4); LYMPHOCYTE 8 % (20.0-51.0); NEUTROPHILS 79 % (42.0-75.2); PLATELET ESTIMATE NORMAL (NORMAL)
--- NOTE | 2019-04-08 14:40 | NUR ---
IZAIAH update: Spoke with patient about post acute care. Patient would like to see if she could QT for IPR, if not then [facility] as first choice and [facility] as secondary. Patient stated she was confused on what she needed and was provided with information regarding Placement./
[2019-04-08 17:53] LABS: INR 0.9 (0.8-3.0)
--- NOTE | 2019-04-08 18:07 | NUR ---
Contacted hospitalist for heparin restart. Per Lissy MOCK. Restart heparin as new order, bolus per protocol. Hepxa to be drawn prior to start of heparin, do not wait for lab to restart medicationy. Will adjust dose once lab is back.
--- NOTE | 2019-04-08 19:13 | NUR ---
Patient returned from PACU via bed at approximately 1010. Patient has gauze and tegaderm over incision on right hip, gauze is CDI. Post op checks have finished. Patient was initially hypertensive upon arriving to floor. Charge nurse administered dose of hydralazine, blood pressure is within normal limits currently. Patient has not had any pain since returning from surgery. Upon returning from surgery hospitalist asked for ortho instructions for resuming heparin drip, ernesto MOSELEY pager was paged, no call back. Ortho was paged again at approximately [phone] and a call back was recieved at [phone]. Ernesto MOSELEY stated that heparin was ordered to resume, this was passed to hospitalist. Recieved orders to start heparin drip per protocol, charge nurse initiated heparin drip per orders. Patient denies pain or needs at this time, call light within reach.
--- NOTE | 2019-04-09 02:35 | NUR ---
Patient resting well throughout the night. Noted to apologize to staff several times for "being grouchy". She stated she was tired from all the visitors she has had today. Sign hung on the door to help deter visitors. Heparin drip continues. Monitoring HepXa as ordered. Dressing to right hip noted to have bloody drainage. PRN pain medication given once this shift. Patient able to assist staff in repositioning in the bed. Voiding well. Will continue to monitor.
[2019-04-09 03:52] VITALS: BP 119/63; PULSE 70; TEMP 97.5
[2019-04-09 05:58] LABS: BASO % 0.2 % (0.0-2.0); EOS # 0.4 (0.0-0.7); EOS % 4.6 % (0-4.0); GRAN # 6.6 (1.4-6.5); GRAN % 71.9 % (42.2-75.2); HEMOGLOBIN 9.6 g/dl (12.5-16.0); LYMPH # 0.8 (1.2-3.4); LYMPH % 8.3 % (20.0-51.0); MEAN CELL VOLUME 98 fl (80.0-100.0); MEAN CORPUSCULAR HEMOGLOBIN 31 pg (27.0-31.0); MEAN CORPUSCULAR HGB CONC 32 g/dl (33.0-37.0); MEAN PLATELET VOLUME 9.6 fl (7.4-10.4); MONO # 1.3 (0.1-0.6); MONO % 14.5 % (1.7-9.3); PLATELET COUNT 181 K/mm3 (130-400); RED BLOOD COUNT 3.07 M/mm3 (4.10-5.30); REDCELL DISTRIBUTION WIDTH-CV 14.4 % (11.5-14.5)
[2019-04-09 06:06] LABS: INR 0.9 (0.8-3.0)
[2019-04-09 06:36] LABS: CALCIUM 8.8 mg/dL (8.4-10.2); CREATININE, serum 0.91 (0.52-1.25); POTASSIUM 4.5 mmol/L (3.4-5.0)
[2019-04-09 07:55] VITALS: BP 125/70; PULSE 73; TEMP 98.6
[2019-04-09 12:17] VITALS: BP 104/50; PULSE 81; TEMP 98.7
[2019-04-09 16:38] VITALS: BP 100/51; PULSE 88; TEMP 97.9
--- NOTE | 2019-04-09 18:28 | NUR ---
Patient got up with PT this morning and ate breakfast and lunch in bedside recliner. Patient was continent of bladder, x2 assist to bedside commode. Dressing on right hip incision was saturated, applied sterile gauze and a tegaderm over incision. Patient continues to deny pain in her hip, but does complain in pain in her sternum and ribs from fall. Administered PRN pain medication per order. Patient denies needs at this time, call light within reach.
[2019-04-09 19:40] VITALS: BP 116/56; PULSE 82; TEMP 98.9
[2019-04-09 23:44] VITALS: BP 122/52; PULSE 91; TEMP 98.8
--- NOTE | 2019-04-10 02:27 | NUR ---
Patient stated she was itching and requested her anxiety medication. Upon arrival to her room she stated she couldn't relax her legs and felt very restless. PRN medication given. Patient denies any pain so far this shift. Appears to be sleeping well at this time. Will continue to monitor.
[2019-04-10 04:33] VITALS: BP 114/56; PULSE 92; TEMP 98.2
[2019-04-10 06:41] LABS: MEAN CELL VOLUME 98 fl (80.0-100.0); MEAN CORPUSCULAR HGB CONC 32 g/dl (33.0-37.0); MEAN PLATELET VOLUME 9.8 fl (7.4-10.4); PLATELET COUNT 220 K/mm3 (130-400); RED BLOOD COUNT 2.58 M/mm3 (4.10-5.30); REDCELL DISTRIBUTION WIDTH-CV 14.4 % (11.5-14.5)
[2019-04-10 06:45] LABS: HEMATOCRIT 25.3 % (37.0-47.0); MEAN CORPUSCULAR HEMOGLOBIN 31 pg (27.0-31.0)
[2019-04-10 06:59] LABS: CALCIUM 8.7 mg/dL (8.4-10.2); CREATININE, serum 0.93 (0.52-1.25); POTASSIUM 4.4 mmol/L (3.4-5.0)
[2019-04-10 07:06] LABS: INR 1.1 (0.8-3.0); PROTHROMBIN TIME 13.4 SECONDS (9.7-12.8)
[2019-04-10 07:57] LABS: BAND 1 % (0-10); EOSINOPHIL 3 % (0-4); LYMPHOCYTE 8 % (20.0-51.0); METAMYELOCYTE 1 % (0-0); NEUTROPHILS 75 % (42.0-75.2); PLATELET ESTIMATE NORMAL (NORMAL)
[2019-04-10 07:58] LABS: ANISOCYTOSIS 1+
[2019-04-10 08:11] VITALS: BP 126/54; PULSE 90; TEMP 97.3
--- NOTE | 2019-04-10 08:30 | NUR ---
Patient siting up in bed eating breakfast. Alert and oriented x 3. Shift assessment complete. Gauze dressing to right hip with drainage present. Feroz hose to BLE. SCDs to BLE. Heparin infusing via pump per protocol. Denies pain or further needs at this time.
--- NOTE | 2019-04-10 09:57 | NUR ---
IZAIAH spoke with IPR director, Latonya, about IPR referral. Latonya reports she has not been able to meet with patient yet but will inform SW when she does. IZAIAH spoke to Hortencia from [facility]. Patient is accepted for a skilled stay if IPR is not able to accept.
--- NOTE | 2019-04-10 11:00 | NUR ---
Patient up to recliner with PT and OT.
[2019-04-10 12:26] VITALS: BP 105/52; PULSE 81; TEMP 97.9
[2019-04-10] MEDS ORDERED: COUMADIN 5MG5 MG/TAB PO (12:47)
[2019-04-10] MEDS ORDERED: TYLENOL 325MG325 MG PO (12:50)
[2019-04-10] MEDS ORDERED: LOVENOX 4040 MG/0.4 SQ (13:04)
[2019-04-10] MEDS ORDERED: NORCO 325 MG-51 TAB PO (13:07)
--- NOTE | 2019-04-10 14:28 | NUR ---
Patient was accepted to [facility] for post acute rehab. SW informed patient.
--- NOTE | 2019-04-10 15:30 | NUR ---
Patient discharging to [facility]. Friend at bedside. Patient will continue on heparin until later this afternoon. Report given to Kristyn AWAD. Patient transfered via wheelchair to room 336.
[2019-04-10] MEDS ORDERED: FLONASE NASAL S16 GM NS (18:29)
[2019-04-10] MEDS ORDERED: CELEBREX 200MG200 MG PO (20:05)
[2019-04-10] MEDS ORDERED: OSCAL 500 TAB500 MG PO (20:06)
[2019-04-10] MEDS ORDERED: NATURAL C500 MG PO (20:06)
== END 2019-04-10 15:30 | DRG 481 ==
LOC: COL.ER 21:52 → SURG 04-07 00:47
PROVIDERS: Emergency Medicine; Nurse Practitioner Family; Orthopaedic Surgery; Physician Assistant; Student in an Organized Health Care Education/Training Program; ADMIT Internal Medicine
PROC: 0QS604Z Reposition Right Upper Femur with Internal Fixation Device, Open Approach (ICD-10-PCS; principal; 2019-04-08 09:00)
DX: S72.011A Unspecified intracapsular fracture of right femur, initial encounter for closed fracture (principal); I50.32 Chronic diastolic (congestive) heart failure; E03.9 Hypothyroidism, unspecified; Z79.01 Long term (current) use of anticoagulants; I11.0 Hypertensive heart disease with heart failure; E78.5 Hyperlipidemia, unspecified; Z86.73 Personal history of transient ischemic attack (TIA), and cerebral infarction without residual deficits; R79.1 Abnormal coagulation profile; J44.9 Chronic obstructive pulmonary disease, unspecified; I08.3 Combined rheumatic disorders of mitral, aortic and tricuspid valves; M81.0 Age-related osteoporosis without current pathological fracture; H35.30 Unspecified macular degeneration; H40.9 Unspecified glaucoma; I48.2 Chronic atrial fibrillation; D64.9 Anemia, unspecified; K59.00 Constipation, unspecified; Z90.49 Acquired absence of other specified parts of digestive tract; Z90.710 Acquired absence of both cervix and uterus; Z95.0 Presence of cardiac pacemaker; Z88.8 Allergy status to other drugs, medicaments and biological substances; Z79.52 Long term (current) use of systemic steroids; F41.9 Anxiety disorder, unspecified; E73.9 Lactose intolerance, unspecified; W01.0XXA Fall on same level from slipping, tripping and stumbling without subsequent striking against object, initial encounter; Y93.89 Activity, other specified; Y92.009 Unspecified place in unspecified non-institutional (private) residence as the place of occurrence of the external cause; Y99.8 Other external cause status
CPT/HCPCS: 99239; A9284; C1713; J0360; J0690; J1644; J2270; J2405; J2704; J3010; Q9967

== ENCOUNTER 2019-04-10 14:36 | Inpatient (IN) | payer MEDICARE, OTHER ==
[~2019-04-10] VITALS: Ht 157.5 cm; Wt 57.7 kg
[~2019-04-10 14:36] MED LIST changes: +ACIDOPHILIS PO; +DEMADEX10 MG PO; +LOVENOX 4040 MG/0.4 SQ; +PRENATAL PLUS PO; +SENNA-LAX8.6 MG PO; +TYLENOL 325MG325 MG PO; +XALATAN EYE DROPS OU
--- NOTE | 2019-04-10 16:56 | NUR ---
Report from RITESH Mcmahan. Pt arrived to room 336 via wheelchair. Caregiver introduced herself at nurse's station. Pt in yellow gown.
[2019-04-10 17:12] VITALS: BP 100/51; PULSE 86; TEMP 97.7
[2019-04-10] MEDS ORDERED: FLONASE NASAL S16 GM NS (18:29)
[2019-04-10] MEDS ORDERED: CELEBREX 200MG200 MG PO (20:05)
[2019-04-10] MEDS ORDERED: NATURAL C500 MG PO (20:06)
[2019-04-10] MEDS ORDERED: OSCAL 500 TAB500 MG PO (20:06)
--- NOTE | 2019-04-10 20:31 | NUR ---
Pt's own meds sent to med [facility]. Report to RITESH Graf, who states she will address the allergies, pt's code status, and pharmacy of choice info. Informed of meds flagged with yellow in med rec that need clarified by the doctor.
--- NOTE | 2019-04-11 01:00 | NUR ---
PT AWAKE. WORKFORCE SERVICES REPRESENTATIVE ASSISTED TO BR- VOIDED W/O DIFFICULTY. RT HIP DRSG SATURATED WITH SEROUS BLOOD. CHANGE AT THIS TIME. C/O CONSTIPATION. GAVE SUPP AND MIRALAX. PT RELATES HAS HAD A LONG HISTORY OF CONSTIPATION- TAKES ALOT OF MEDS TO HAV A BM EACH DAY.
[2019-04-11 05:12] VITALS: BP 108/47; PULSE 87; TEMP 98
--- NOTE | 2019-04-11 07:11 | NUR ---
IV SITE TO LT F/A DC'D. HELD PRESSURE. PLACED COBAN. NO COMPLAINTS THIS AM. REPORT GIVEN TO KVNG MARCOS RN.
[2019-04-11 07:31] LABS: INR 1.5 (0.8-3.0); PROTHROMBIN TIME 17.3 SECONDS (9.7-12.8)
[2019-04-11 08:34] VITALS: BP 119/61
--- NOTE | 2019-04-11 12:24 | NUR ---
Initial visit; Patient thanked Fiberglass Boat Assembly Supervisor for looking in on her and offering prayer and spiritual care. Fiberglass Boat Assembly Supervisor offered God's blessings.
--- NOTE | 2019-04-11 13:23 | NUR ---
Patient eating her lunch at this time, call light in reach and OTLeanna by her side. Patient agreed to some Tylenol to help with rib pain. Will continue to monitor. Patient needed to be encouraged to eat lunch today, as she was very tired and just wanted to keep her eyes closed. Patient stated, "I am not sure if I can do the three hours of therapy today." This nurse let her know that she just needed to do the best that she could and that would be good enough. Patient was independent on eating only needing assistance with opening some of the containers today. Patient was able to position herself on the side of the bed from a lying position on her own and was able to scoot herself over closer to the side rail so that she could be positioned more upright when eating in bed.
[2019-04-11 16:13] VITALS: BP 116/49; PULSE 90; TEMP 97.9
--- NOTE | 2019-04-11 16:25 | NUR ---
SW met with patient for initial intake, as the patient is new to [facility]. Patient lives at home alone here in [place]. Patient's PCP is Dr Butler and she obtains prescriptions from [facility]. Patient reports she has a caregiver through [place] that visits patient every day for 3-4 hours. Patient reports she does not normally use any medical equipment. Patient reports she does have a DPOA-HC. IZAIAH informed patient that on Wednesdays, the IPR team will meet to discuss her progress. SW reported she will follow up with patient with the notes from that meeting. SW will continue to follow.
--- NOTE | 2019-04-11 21:20 | NUR ---
Patient rests in bed and 2 assist to reposition up in bed. HS meds along with norco for right hip pain reviewed and given and home prn med for anxiety. Takes meds with crackers 1 at a time.
--- NOTE | 2019-04-11 23:30 | NUR ---
Rests in bed with eyes closed. Respirations with ease.
--- NOTE | 2019-04-12 03:14 | NUR ---
Patient rests with eyes closed. Respirations with ease. O2 on 2lpnc.
[2019-04-12 05:18] VITALS: BP 118/52; PULSE 85; TEMP 98.3
--- NOTE | 2019-04-12 06:23 | NUR ---
Awakened for am meds. Declines pain med at this time.
[2019-04-12 06:56] LABS: HEMATOCRIT 23.1 % (37.0-47.0); HEMOGLOBIN 7.3 g/dl (12.5-16.0); MEAN CELL VOLUME 99 fl (80.0-100.0); MEAN CORPUSCULAR HEMOGLOBIN 31 pg (27.0-31.0); MEAN CORPUSCULAR HGB CONC 32 g/dl (33.0-37.0); MEAN PLATELET VOLUME 9.2 fl (7.4-10.4); PLATELET COUNT 280 K/mm3 (130-400); RED BLOOD COUNT 2.33 M/mm3 (4.10-5.30); REDCELL DISTRIBUTION WIDTH-CV 14.6 % (11.5-14.5)
[2019-04-12 07:06] LABS: INR 1.8 (0.8-3.0); PROTHROMBIN TIME 21.5 SECONDS (9.7-12.8)
[2019-04-12 07:15] LABS: CALCIUM 10.2 mg/dL (8.4-10.2); CREATININE, serum 1.01 (0.52-1.25); MAGNESIUM 2.1 mg/dL (1.6-2.3); POTASSIUM 4.7 mmol/L (3.4-5.0)
[2019-04-12 07:50] LABS: EOSINOPHIL 1 % (0-4); LYMPHOCYTE 11 % (20.0-51.0); NEUTROPHILS 82 % (42.0-75.2); PLATELET ESTIMATE NORMAL (NORMAL)
--- NOTE | 2019-04-12 10:26 | NUR ---
Follow-up visit; Patient thanked Waste Baler for looking in on her again today and stated she may be a little better though still in pain. She and Waste Baler visited and Waste Baler offered God's blessings.
--- NOTE | 2019-04-12 13:34 | NUR ---
SW met with patient to review IPR team conference. SW also reported that the IPR team would like to have a family conference on Thursday 04/19. Patient reports her granddaughter might be able to attend. SW attempted to contact patient granddaughter. SW left a message.
--- NOTE | 2019-04-12 13:42 | NUR ---
IZAIAH spoke with eduard's granddaughter, Paige, to schedule a family conference. Paige reports she is available next Wednesday at 9:30am. Paige reports she will contact patient's caregiver about the family conference.
--- NOTE | 2019-04-12 15:26 | NUR ---
Received call from family member Oliva Pelon this afternoon. She reported that she was the patient's DPOA and was hoping to get an up date following the care plan meeting this morning. This information was passed on to IZAIAH Ornelas. She stated that she would give Oliva a call. [phone]
--- NOTE | 2019-04-12 16:09 | NUR ---
IZAIAH spoke with patient's daughter, Oliva, about patient's progress. Oliva inquired about the discharge plan. IZAIAH reported that the team does not have a discharge plan at this time but they will reevaluate next wednesday. IZAIAH reported, she will keep Oliva updated on patient's progress and any recommendations for discharge.
[2019-04-12 17:00] VITALS: BP 104/55; PULSE 77; TEMP 98.7
--- NOTE | 2019-04-12 18:23 | NUR ---
Patient had multiple visitors today. She attended all therapies. Reported pain to ribs and was given prn tylenol with good effect. Patient was independent with eating this shift. See orders for more bowel meds. Dr. Coppola agreed to let patient take all the same bowel meds she was taking at home. He was okay with this.
--- NOTE | 2019-04-12 20:21 | NUR ---
Fleet enema that was scanned to be given this morning, but was given this evening at 20:[address] Coppola had put the one time order in, but patient was either with therapy, sleeping, eating or having visitors today. Patient requested that it be given this evening.
--- NOTE | 2019-04-12 20:45 | NUR ---
Patient in bathroom attempting bm.
--- NOTE | 2019-04-12 22:00 | NUR ---
Patient assisted back to bed after suppositories x 2 given. HS meds all reviewed and given. Takes slowly with bites of crackers. [place] given for right hip pain. Pullup applied in case of accident following suppository.
--- NOTE | 2019-04-13 02:22 | NUR ---
Patient resting in bed with eyes closed after anxiety med given earlier.
[2019-04-13 05:24] VITALS: BP 129/59; PULSE 94; TEMP 97.9
--- NOTE | 2019-04-13 05:30 | NUR ---
Patient reports queezyness when getting up to the bathroom and took own rolaids at bedside. Has been up 3-4 times to void mixed with small loose stools this shift. Denies need for pain med.
[2019-04-13 07:08] LABS: PROTHROMBIN TIME 23.9 SECONDS (9.7-12.8)
--- NOTE | 2019-04-13 08:21 | NUR ---
Report from RITESH Casillas. Chance, LIANE, assisted pt this morning with warm washcloth for face, pt needed repositioned in bed but declined suggestion to sit up in recliner. O2@1.5LPNC, glasses in place, mepilex to right elbow intact, SCDs to BLE. Pt c/o pains but declined offer for pain meds. Held off on PO supplements scheduled for this morning as pt reports her stomach is queasy. Yellow gown and gripper socks in place.
--- NOTE | 2019-04-13 10:49 | NUR ---
Brittany, OT reports pt nauseated. Pt had small amount of liquid emesis, pink tinged as if from food or pills with small dark bits. TUMS given and listened to pt's concerns. Pt returned to recliner, requested feet up, assisted, provided sprite and donned pt's O2, brought over oral care supplies. Pt reports episodes of nausea, dizziness, feeling hot and weak with transfers.
[2019-04-13 15:10] VITALS: BP 114/46; PULSE 81; TEMP 98.8
--- NOTE | 2019-04-13 20:00 | NUR ---
STILL NEED STOOL FOR OB/ WITHOUT URINE OR ENEMA MIXED.
--- NOTE | 2019-04-13 20:15 | NUR ---
PT RETURNED FROM BR WITH WALKER WITH POWER DRIVEN BRUSH MAKER. NEW ORDER FOR FLEET ENEMA- GIVEN CONSTIPATION. WITH MED LOOSE/HARD BROWN STOOL. O2 2L NC CONTINUOUS/HUMIDIFIED. SEE MAR FOR PAIN MED GIVEN. ERIN HOSE OFF FOR THE NIGHT. SCD'S ON.
--- NOTE | 2019-04-13 20:43 | NUR ---
Pt able to take supplements this afternoon. Reported nausea improved. Posted sign on door to limit visitors per pt request. Caregiver and friend visited at suppertime. Pt to recliner with meal tray uneaten at shift change. Report to RITESH Graf
--- NOTE | 2019-04-14 00:15 | NUR ---
GAVE PT'S OWN ANXIETY MED PER PT REQUEST. CALL LIGHT IN REACH. BED ALARM SET
[2019-04-14 05:38] VITALS: BP 127/48; PULSE 85; TEMP 98.1
[2019-04-14 06:30] LABS: HEMOGLOBIN 7.4 g/dl (12.5-16.0); MEAN CELL VOLUME 98 fl (80.0-100.0); MEAN CORPUSCULAR HEMOGLOBIN 32 pg (27.0-31.0); MEAN CORPUSCULAR HGB CONC 32 g/dl (33.0-37.0); MEAN PLATELET VOLUME 8.6 fl (7.4-10.4); PLATELET COUNT 289 K/mm3 (130-400); RED BLOOD COUNT 2.34 M/mm3 (4.10-5.30); REDCELL DISTRIBUTION WIDTH-CV 14.4 % (11.5-14.5)
[2019-04-14 06:31] LABS: INR 2.6 (0.8-3.0); PROTHROMBIN TIME 31.6 SECONDS (9.7-12.8)
[2019-04-14 06:58] LABS: EOSINOPHIL 4 % (0-4); LYMPHOCYTE 19 % (20.0-51.0); NEUTROPHILS 66 % (42.0-75.2); NUCLEATED RED BLOOD CELL 1 (0-6); PLATELET ESTIMATE NORMAL (NORMAL)
--- NOTE | 2019-04-14 09:25 | NUR ---
Informed pt there was 1.5 tabs of her anxiety med.
[2019-04-14 11:30] VITALS: BP 109/56; PULSE 100
--- NOTE | 2019-04-14 11:32 | NUR ---
MICHAEL Soto informed nurse that pt requested her vitals be checked. Pt on toilet, reports that she felt tired, hot, dizzy and short of breath. See VS. Informed pt that lower BP can make HR higher, carley while toileting. Pt reported these symptoms yesterday during transfers.
--- NOTE | 2019-04-14 13:28 | NUR ---
Pt c/o upset stomach, possibly the iron. PRN TUMS given.
--- NOTE | 2019-04-14 14:10 | NUR ---
Warfarin Follow-up Pharmacy Note Current regimen: 5 MG QHS LABS: INR 2.6 Changes in therapy: INR INCREASED 0.6 IN 1 DAY. DOSE REDUCED TO 4 MG QHS. INR WILL CONTINUE TO BE MONITORED.
[2019-04-14 15:04] VITALS: BP 99/44; PULSE 99; TEMP 97.7
--- NOTE | 2019-04-14 16:41 | NUR ---
Pt did not think she could tolerate rest of lunch supplements at 1500, took vitals, comfortable in recliner, requested to rest and post sign for no visitors.
--- NOTE | 2019-04-14 20:30 | NUR ---
PT SLEEPING. NO RESP DISTRESS. O2 AT 2L NC HUMIDIFIED.
--- NOTE | 2019-04-14 22:04 | NUR ---
PT C/O CHEST TRAUMA FROM FALL IS CAUSING PAIN ACROSS CHEST "BONES". FEEL SHE NEEDS ANOTHER CXR/CT TO SEE IF SOMETHING ELSE IS GOING ON. PT RELATES HAVING HOT FLASHES AND WEKNESS WITH ACTIVITY. PT DECLINES PAIN MED WHEN TIME AGAIN. TOOK ANXIETY HOME MED. PT RELATES SHE IS NOT SLEEPING AND IS SHORT OF BREATH. LUNGS SOUNDS UNCHANGED. NO OBVIOUS INJURY TO CHEST. O2 2L NC HUMIDIFIED. WILL TAKE ORTHO STAIC BP NEXT UP TO BR. WANTS NURSE TO TALK TO DOCTOR TOMORROW AND DOESNT FEEL SHE SHOULD ATTEND THERAPY UNTIL THINGS ARE RECHECKED.
--- NOTE | 2019-04-14 22:43 | NUR ---
PT RELATED STERNAL PAIN NOT ANY WORSE BUT REQUEST PAIN MED. SEE MAR.
[2019-04-14 23:29] VITALS: BP 137/55; BP 145/62
[2019-04-14 23:35] VITALS: BP 127/61
--- NOTE | 2019-04-14 23:58 | NUR ---
PT SLEEPING. NO DISTRESS NOTED.
[2019-04-15 04:04] VITALS: BP 131/59; PULSE 87; TEMP 98.5
--- NOTE | 2019-04-15 04:06 | NUR ---
ASSISTED PT TO BR WITH FWW. PASSED XLG FLATUS. NO BM. VOIDED W/O DIFFICULTY. BACK TO BED. CALL LIGHT IN REACH. BED ALARM SET.
--- NOTE | 2019-04-15 08:00 | NUR ---
PT ATE 50% OF MEAL. SHE IS ON 02@2L/NC AND RESP RATE IS 20. PT DENIES PAIN AT PRESENT. PT WAS ASSISTED TO DRESS AND GO TO BR BY OT. REQUESTED/GIVEN HER ANXIETY MED. PT LIZETH WITH THERAPIST [id number]
[2019-04-15 08:57] LABS: INR 2.5 (0.8-3.0); PROTHROMBIN TIME 30.4 SECONDS (9.7-12.8)
--- NOTE | 2019-04-15 11:30 | NUR ---
RETURNS FROM THERAPY BACK TO ROOM, USES THE BR, REPORTS DIZZY FROM PT.
--- NOTE | 2019-04-15 15:21 | NUR ---
VISITING WITH FRIEND
[2019-04-15 17:42] VITALS: BP 95/47; PULSE 83; TEMP 98.4
--- NOTE | 2019-04-15 20:00 | NUR ---
PT RESTING IN BED. A&O X4. PT VERY NONSPECIFIC AND NONDESCRIPT IN COMMUNICATING. STRENGTH EQUAL BILAT. LT GLASS SYBIL IS OBSCURED TODAY. PT RELATES SH FEEL LIKE THAT IS IMPROVING ALITTLE, SHE THINKS. DENIES NAUSEA OR PAIN. PT NEEDS EXTRA TIME FOR THOUGHT PROCESS. PT AMB TO BR PER SELF BUT USING CALL LIGHT PRIOR TO NOTIFY STAFF.
--- NOTE | 2019-04-16 02:07 | NUR ---
ICE PACK TO CHEST- "HURTS FROM WHEN I FELL".
[2019-04-16 06:00] VITALS: BP 102/48; PULSE 75; TEMP 97.8
[2019-04-16 08:10] LABS: INR 2.7 (0.8-3.0); PROTHROMBIN TIME 32.5 SECONDS (9.7-12.8)
--- NOTE | 2019-04-16 14:35 | NUR ---
Pt toileting, family called nurse for emergency concerns, pt had possibly vagal response while toileting, same symptoms as prior incidences with feeling hot, nauseated, sweaty, dizzy. Pt returned to bed, caregiver Mabel and Porter here.
--- NOTE | 2019-04-16 15:18 | NUR ---
Pt told about the first time she fell and broke her sternum, no acute distress, given anxiety med per request, asked Mabel to bring more from home. Pt took pills with water then chewed crackers.
[2019-04-16 15:40] VITALS: BP 91/46; PULSE 92; TEMP 97.6
--- NOTE | 2019-04-16 19:47 | NUR ---
Pt in bed for supper, talking on phone, saved leftover food items on tray. Report to RITESH Graf. Mabel delivered four more of pt's own meprobamate- to pt's med bottle in bin.
--- NOTE | 2019-04-16 22:00 | NUR ---
PT AWAKE AFTER A NAP. ASSISTED TO BR. VOIDED. RETURNED TO BED. TAKES PILLS ONE AT A TIME AND EATS CRACKERS TO GET THEM DOWN. NO CHOKING. PT REQUEST PAIN MED FOR STERNAL DISCOMFORT LEVEL 5/10. ICE PACK APPLIED PRN. SCD'S ON. CALL LIGHT IN REACH. BED ALARM SET.
[2019-04-17 03:57] VITALS: BP 125/88; PULSE 80; TEMP 98.3
--- NOTE | 2019-04-17 09:53 | NUR ---
Patient takes her pills one at a time with water and saltine crackers, she takes her time. Patient attending therapies this morning. No episodes of nausea this morning. Chance/LIANE applied desitin to bottom this morning. Patient was continent of urine and was a one assist with toilet transfer this morning using a walker and gait belt. Will continue to monitor.
--- NOTE | 2019-04-17 11:27 | NUR ---
Patient working with OT at this time. Reporting pain 5/10 at this time and given prn Tylenol. Patient anxious this morning and given prn anxiety med will continue to monitor. Patient also having nausea and given zofran with sprite and crackers. She requested to be able to get breakfast later in morning and to start therapies later in the morning. Brittany will discuss with Eloisa today to see if that would be managable.
--- NOTE | 2019-04-17 15:15 | NUR ---
SW met with the patient to introduce myself and to inquire about weekend care. The pt reports she got to sleep 2.5 extra hours. She states she is not a morning person; other than that all is well. IZAIAH will continue to follow to assist with any discharge recommendations.
[2019-04-17 15:30] VITALS: BP 106/55; PULSE 86; TEMP 98.6
--- NOTE | 2019-04-17 18:07 | NUR ---
Patient eating her supper at this time. Given prn Tylenol to help with sternal pain. Patient sent back her burrito to the kitchen to have more chicken added to it this evening. Patient was given anxiety meds during therapy this afternoon and is relaxed in bed at this time.
--- NOTE | 2019-04-17 20:30 | NUR ---
Patient up min 1 assist to the bathroom. Ambulates slow but mostly steady and able to get in and out of bed with observation and set up help. Undressed self and nurse assisted to tie gown. Sits up in recliner and at 2215 called and assisted to bed. SCD's on. BLE elevated on pillow and kpad to chest. Aquacel changed to right elbow/healed just small areas of bruising.
--- NOTE | 2019-04-17 21:00 | NUR ---
HS meds all reviewed along with anxiety and pain med. Requested suppository for constipation and given.
--- NOTE | 2019-04-18 02:00 | NUR ---
Awake and thermostat adjusted down/door left open. "No air flow". Denies further needs.
[2019-04-18 04:59] VITALS: BP 121/68; PULSE 87; TEMP 98.1
[2019-04-18 07:06] LABS: INR 2.2 (0.8-3.0); PROTHROMBIN TIME 26.6 SECONDS (9.7-12.8)
--- NOTE | 2019-04-18 12:34 | NUR ---
Patient resting in chair eating her lunch. She takes her pills one at a time with sips of water and bites of cracker.
--- NOTE | 2019-04-18 13:14 | NUR ---
SW contacted pt's daughter Oliva to change the family meeting time to 1330 on 04/19. Oliva reported she will contact pt's granddaughter, Noemi of the change. IZAIAH will continue to follow.
--- NOTE | 2019-04-18 13:33 | NUR ---
Warfarin Follow-up Pharmacy Note Current regimen: Warfarin 4 mg po qHS LABS: INR 2.2 (04/18/19), INR 2.7 (04/16/19) Changes in therapy: Will increase Warfarin to 4.5 mg po qHS to avoid INR dropping below 2. Pharmacy will continue to monitor and follow daily INR levels.
--- NOTE | 2019-04-18 14:37 | NUR ---
Patient resting in wheelchair at this time taking her 2 pm pills. Patient has her last therapy session with OT in a few minutes. She stated, "I did good this morning with therapy, but am tired now."
[2019-04-18 17:41] VITALS: BP 124/50; PULSE 92; TEMP 97.8
--- NOTE | 2019-04-18 17:41 | NUR ---
Patient had a later schedule for therapies today and reported that starting later in the morning worked well. Patient slept this afternoon following therapies. She was a one assist with the walker to the bathroom. She was continent this shift, but does wear a pad for urge incontience. She eats independently, takes more time and does ask for staff to open containers for her at times. Patient needs to be cued to use the controls for her bed, does it slow, but is capable of lifting the head rest of her bed up and down independently. Patient is able to make her needs known.
--- NOTE | 2019-04-18 21:15 | NUR ---
Anxiety med and pain pill given per patient request prior to sleep.
--- NOTE | 2019-04-18 22:21 | NUR ---
Rests in bed with eyes closed. Respirations with ease.
--- NOTE | 2019-04-19 02:16 | NUR ---
Rests with eyes closed. Respirations with ease. O2 on 2lpnc.
[2019-04-19 05:08] VITALS: BP 135/56; PULSE 93; TEMP 97.5
[2019-04-19 06:52] LABS: INR 2.4 (0.8-3.0); PROTHROMBIN TIME 28.7 SECONDS (9.7-12.8)
[2019-04-19 07:02] LABS: CALCIUM 9.9 mg/dL (8.4-10.2); CREATININE, serum 0.96 (0.52-1.25); MAGNESIUM 2.1 mg/dL (1.6-2.3); POTASSIUM 4.4 mmol/L (3.4-5.0)
[2019-04-19 07:13] LABS: BASO # 0.1 (0.0-0.2); BASO % 0.7 % (0.0-2.0); EOS # 0.2 (0.0-0.7); EOS % 2.2 % (0-4.0); GRAN # 8.2 (1.4-6.5); GRAN % 73.5 % (42.2-75.2); LYMPH # 1.2 (1.2-3.4); MEAN CELL VOLUME 101 fl (80.0-100.0); MEAN CORPUSCULAR HGB CONC 31 g/dl (33.0-37.0); MEAN PLATELET VOLUME 8.9 fl (7.4-10.4); MONO # 1.1 (0.1-0.6); MONO % 9.8 % (1.7-9.3); PLATELET COUNT 433 K/mm3 (130-400); REDCELL DISTRIBUTION WIDTH-CV 15.5 % (11.5-14.5)
[2019-04-19 07:18] LABS: HEMATOCRIT 24.2 % (37.0-47.0); HEMOGLOBIN 7.5 g/dl (12.5-16.0); MEAN CORPUSCULAR HEMOGLOBIN 31 pg (27.0-31.0)
--- NOTE | 2019-04-19 09:10 | NUR ---
Pt is awake and A/Ox4, resting in bed. She states she is having 3/10 pain to her sternum, given PRN tylenol. Right hip incision is open to air and without complications. Mepilex dressing to right elbow is intact. Pt is up to restroom with SBA + walker.
--- NOTE | 2019-04-19 14:47 | NUR ---
Pt stated she hasnt had a BM in 3 days. Requested PRN enema which was given. Medium dark green/brown stool. Pt states she feels "a little better," but request PRN miralax as well. Scab to right hip incision came off, scant amount of bleeding. Foam dressing applied.
--- NOTE | 2019-04-19 16:19 | NUR ---
SW met with the patient to discuss Team Conference II. The pt did not have any questions at this time. The team is recommending home health. SW provided the list from [employer] and pt will wait for family to help make decision about agency. IZAIAH will continue to follow.
--- NOTE | 2019-04-19 16:38 | NUR ---
Pt had large loose bowel movement post miralax.
[2019-04-19 18:54] VITALS: BP 117/39; PULSE 95; TEMP 97.9
--- NOTE | 2019-04-19 21:00 | NUR ---
PT HAD BEEN SLEEPING. AWAKE NOW. A&OX4. RT HIP HAS MEPILEX DRSG D/T SCAB STARTS BLEEDING IF RUBBED. OTHERWISE HEALING WELL. DENIES NEED FOR PAIN MED AT THIS TIME. PT REPORTS STERNUM PAINFUL BUT NOT BEFORE. DENIES NEED FOR ICE PACK. TAKES HS PILLS ONE PILL AT A TIME. WITH CRACKERS. HOB ELEVATED.
[2019-04-20 05:33] VITALS: BP 121/65; PULSE 106; TEMP 97.8
[2019-04-20 07:15] LABS: INR 2.5 (0.8-3.0); PROTHROMBIN TIME 29.6 SECONDS (9.7-12.8)
--- NOTE | 2019-04-20 11:37 | NUR ---
assisted pt to br voided and returned to bed after therapy with assist x1.
[2019-04-20 18:07] VITALS: BP 100/47; PULSE 84; TEMP 98.1
--- NOTE | 2019-04-20 21:00 | NUR ---
PT READY FOR BED. PT VERY TALKATIVE TONIGHT. DENIES NEED FOR PAIN MEDICAITION. NEEDED ASSIST TO GET LEGS UP INTO BED. CALL LIGHT IN REACH. BED ALARM IN REACH. O2 2L NC.
[2019-04-20 22:01] LABS: COLLECTION METHOD CLEAN CATCH
[2019-04-20 22:14] LABS: MUCOUS Present /lpf; PH 5 (5-8); SQUAMOUS EPITHELIAL 0-2 /hpf; URINE APPEARANCE Hazy; URINE BACTERIA None Seen /hpf; URINE BILIRUBIN Negative (NEGATIVE); URINE BLOOD Negative (NEGATIVE); URINE COLOR Yellow; URINE GLUCOSE Negative (NEGATIVE); URINE KETONE Negative (NEGATIVE); URINE LEUKOCYTE ESTERASE Negative (NEGATIVE); URINE NITRATE Negative (NEGATIVE); URINE PROTEIN(semi-quant) Negative (NEGATIVE); URINE UROBILINOGEN Negative (NEGATIVE)
[2019-04-21 05:25] VITALS: BP 140/57; PULSE 87; TEMP 98.5
--- NOTE | 2019-04-21 11:27 | NUR ---
Patient working with therapy at this time. Patient takes more time, but does take pills whole one at a time with bites of crakers in between. Given prn zofran for nausea this morning and this was effective. Patient tolerating diet well at this time. Pain to sternum continues, given prn tylenol that does help. She refuses to take [place] as this makes her too tired. Will continue to monitor.
[2019-04-21 13:30] VITALS: BP 122/55; PULSE 88; TEMP 98.7
--- NOTE | 2019-04-21 17:50 | NUR ---
Patient had multiple visitors this shift. She had a few times that requested nausea meds and was given zofran with good effect. Patient has not had a bowel movement in a few days, but does receive scheduled bowel meds. Night nurse will be assisting patient this evening with more bowel meds per patient request. Patient independent with her eating. She was able to get her legs in bed on her own no assistance required.
--- NOTE | 2019-04-21 20:35 | NUR ---
All HS medications given. Taken without difficulty. Pt washed face. Pt states she will call when she is ready for enema.
--- NOTE | 2019-04-21 21:35 | NUR ---
Fleets enema given. Pt helped up to bathroom. Changed into gown for sleeping and brief. Pt did not have any immediate results from enema. Will continue to monitor.
--- NOTE | 2019-04-21 22:30 | NUR ---
Pt back to bed. TEDs removed per pt request. Pt refuses SCDs in case she "needs to get up quick" to the bathroom. Pt had minimal results from enema. PRN Tylenol given for c/o aching in R hip.
[2019-04-22 05:58] VITALS: BP 121/52; PULSE 83; TEMP 97.7
--- NOTE | 2019-04-22 06:18 | NUR ---
Pt has slept periodically throughout the night with multiple trips the the bathroom. Sleeping this AM, but easily arousable. AM meds given. Pt denies needs.
[2019-04-22 07:05] LABS: INR 3.1 (0.8-3.0); PROTHROMBIN TIME 37.5 SECONDS (9.7-12.8)
--- NOTE | 2019-04-22 09:23 | NUR ---
Warfarin Follow-up Pharmacy Note Current regimen: Warfarin 4.5 mg po qHS LABS: INR 3.1 Changes in therapy: Will decrease Warfarin to 4 mg po qHS as INR slightly supratherapeutic. Pharmacy will continue to monitor and follow daily INR levels.
--- NOTE | 2019-04-22 14:20 | NUR ---
0800 - PT LAYING IN BED. TRAY NEXT TO HER BED. NURSE SET UP TRAY AND GIVEN PT HER MEDS. PAIN MEDS AND NERVE PILL GIVEN AT 0730 0930 - PT LEAVES WITH THERAPY IN WHEELCHAIR 1030 - PT RETURNS FROM THERAPY. WEIGHT GOTTEN. 1200 - MEDS AND LUNCH TRAY GIVEN TO PT. AFTER LUNCH PT RESTIANG WITH HER EYES CLOSED AND RESP EVEN
--- NOTE | 2019-04-22 15:24 | NUR ---
ASSISTED UP TO BR AND PT JUST VOIDED. LOTS OF GAS BUT NO STOOL
[2019-04-22 17:01] VITALS: BP 122/52; PULSE 80; TEMP 98.6
--- NOTE | 2019-04-22 19:30 | NUR ---
Patient report received from RITESH Brownlee at shift change. Upon assessment at this time, patient just returned from the bathroom with SBA and walker, tolerated well. Patient complains of discomfort and distension to her abd, reporting that she needs to have a BM and has not had any luck despite receiving medications for it. PRN miralax given in warm water along with scheduled bowel medications and tylenol. No other need reported/observed.
[2019-04-23 05:45] VITALS: BP 119/67; PULSE 93; TEMP 98.6
[2019-04-23 06:22] LABS: INR 2.9 (0.8-3.0); PROTHROMBIN TIME 35.6 SECONDS (9.7-12.8)
--- NOTE | 2019-04-23 07:07 | NUR ---
Patient report given to RITESH Brownlee. Patient had 3 loose stools last night, reports not resting well due to getting up to the bathroom throughout night.
--- NOTE | 2019-04-23 08:29 | NUR ---
PT UP TO BR WITH LOOSE TRACE AMT OF STOOL IN TOILET. GAIT SEATDY WITH WALKER AND GAITBELT. PAIN 3/10 CHEST AREA DULL ACHE. GIVEN PAIN MED.
--- NOTE | 2019-04-23 13:01 | NUR ---
REPORTS FEELING NUASEATED. WAS GIVEN ZOFRAN. OFFERED TO WALK WITH HER, SHE STATES NOT NOW.
[2019-04-23 16:35] VITALS: BP 120/56; PULSE 96; TEMP 97.8
--- NOTE | 2019-04-23 16:46 | NUR ---
PT STATES SHE IS DIZZY AND DOENST FEEL GOOD. GAVE SPRITE FOR HER TUMMY, SHE HAD ZOFRAN AT 1300 TODAY. VSS
--- NOTE | 2019-04-23 17:27 | NUR ---
PT WAS DISEMPACTED AND THE STOOL WAS VERY S OFT TO FLUID. GAVE FLEETS EMEMA AND HAD PT PUSH TO REMOVE STOOL. SHE HAD A LARGE STOOL.
--- NOTE | 2019-04-23 19:15 | NUR ---
Pt up to chair c/o some pain to R shoulder. She states it became sore during the "suppository procedure" from holding the bed rail. Pt also c/o some nausea. Requesting pain medication and TUMS. Respirations even and unlabored. Lungs clear, bases diminished. O2@2L via NC. Abdomen distended. BS hypoactive. R hip Mepilex has some drainage noted. R elbow mepilex clean, dry and intact. Erythema noted to coccyx.
--- NOTE | 2019-04-23 20:15 | NUR ---
Pt helped up to bathroom with walker and gait belt. Pt had large loose BM. Brief changed d/t small amount of functional incontinence. Helped back to bed. HS medications given. Gown changed. Pt denies further needs.
--- NOTE | 2019-04-23 20:30 | NUR ---
Pt states she is ready for bed, she "had a long day". Oral care preformed. No further needs noted.
--- NOTE | 2019-04-24 05:00 | NUR ---
Pt called stating she was having a foot cramp and needed to walk. Pt states she had a dream that she was doing foot exercises at PT and she got a foot cramp in her dream. When she awoke from her dream, she had a real foot cramp. Pt up to bathroom with gait belt and walker and back to bed. Well tolerated. Pt has slept periodically throughout the night. Denies pain this AM. No needs noted.
[2019-04-24 05:17] VITALS: BP 109/49; PULSE 90; TEMP 97.8
[2019-04-24 07:08] LABS: INR 3.3 (0.8-3.0); PROTHROMBIN TIME 40.2 SECONDS (9.7-12.8)
[2019-04-24 09:25] VITALS: BP 127/56
--- NOTE | 2019-04-24 11:23 | NUR ---
Patient went for a walk with Javi around surgical and [facility] a few minutes ago. Per patient request this nuse called and left a message for Dr. Moyer nurse asking if it was okay for patient to use an aquacel 1 Q 7 days or air strip Q day. Awaiting on a return call at this time.
--- NOTE | 2019-04-24 13:43 | NUR ---
SW contacted pt's daughter, Oliva about choosing a home health agency; SW left message. IZAIAH will continue to follow.
--- NOTE | 2019-04-24 15:34 | NUR ---
Tash pt's nurse reports that Olivarayshawn's daughter reports they chose [facility]. SW to send referral. SW will continue to follow.
--- NOTE | 2019-04-24 15:41 | NUR ---
Patient resting in bed at this time, mehdi hose on, call light in reach and bed alarm is on. Patient took pills with water. Was independent on grooming - shaving herself with an electric razor. Discussed Home Health options for patient. Her daughter Oliva had called and wanted this nurse to tell the patient that she was okay with the last HH service that she used. [facility] This nurse called and spoke with Geovanna BLISS to update her on the HH service that patient had requested. [facility]
[2019-04-24 16:48] VITALS: BP 117/48; PULSE 95; TEMP 99
--- NOTE | 2019-04-24 19:31 | NUR ---
Pt sitting at side of bed with visitors at bedside. No distress noted. Pt denies pain at this time. Respiration even and unlabored. Lungs clear. O2@2L via NC. Abdomen distended. BS+. R hip Mepilex with drainage noted. R elbow Mepilex clean dry and intact. Pt denies needs at this time. Will continue to monitor.
--- NOTE | 2019-04-24 21:50 | NUR ---
Pt changed into disposable brief. Suppository given per pt request. Bed alarm set. Call light in reach.
--- NOTE | 2019-04-25 00:50 | NUR ---
Pt up to bathroom with 1 assist and walker. Pt had large, soft formed BM. Pt refusing SCDs tonight stating "they make my leg nerves bothered". Pt requests her sandwich she did not eat earlier. No further needs noted.
[2019-04-25 05:45] VITALS: BP 128/58; PULSE 94; TEMP 98.1
--- NOTE | 2019-04-25 06:02 | NUR ---
Pt sleeping this AM. Pt slept periodically throughout the night. She was up multiple times to the bathroom and reported some anxiety during the night.
[2019-04-25 07:13] LABS: INR 2.8 (0.8-3.0); PROTHROMBIN TIME 33.7 SECONDS (9.7-12.8)
--- NOTE | 2019-04-25 08:59 | NUR ---
Patient resting in bed at this time, call light in reach and bed alarm is on. Patient in pleasent mood. Reporting pain 2/10 to sternum area. Given prn tylenol with good effect. Will continue to monitor. Patient didn't eat all her breakfast, just because she was tired.
[2019-04-25 17:14] VITALS: BP 101/84; PULSE 89; TEMP 98
--- NOTE | 2019-04-25 19:59 | NUR ---
Dressing change to right hip observing bloody drainage to area. Area was cleaned, patted dry and dressed with gauze and tegaderm. Patient reported that she had been working with therapy and they had her rolling from side to side and today was the first time that she layed completly on that side. She did not feel pain, but there seems to be a hematoma in that area and this nurse left a message for the nurse tomorrow to have Dr. Coppola look at it.
--- NOTE | 2019-04-25 21:00 | NUR ---
resident caregiver in visiting with patient. HS meds all reviewed and given along with norco and home anxiety med per patient request. Patient takes crackers with meds.
--- NOTE | 2019-04-25 22:30 | NUR ---
Patient rests with eyes closed. Respirations with ease.
--- NOTE | 2019-04-26 01:26 | NUR ---
Patient requests suppository and given while resting in bed. Dressing change done to right hip hematoma-reddish purple and firm to touch but no active drainage at this time. New icepack applied right hip.
[2019-04-26 05:35] VITALS: BP 134/61; PULSE 88; TEMP 97.9
--- NOTE | 2019-04-26 05:47 | NUR ---
STATES SLEPT WELL TONIGHT. "HAD WIERD DREAMS THOUGH".
[2019-04-26 06:33] LABS: BASO # 0.1 (0.0-0.2); BASO % 0.7 % (0.0-2.0); EOS # 0.1 (0.0-0.7); EOS % 1.9 % (0-4.0); GRAN # 5.3 (1.4-6.5); GRAN % 71.7 % (42.2-75.2); LYMPH % 13.4 % (20.0-51.0); MEAN CELL VOLUME 103 fl (80.0-100.0); MEAN CORPUSCULAR HGB CONC 32 g/dl (33.0-37.0); MEAN PLATELET VOLUME 8.2 fl (7.4-10.4); MONO # 0.8 (0.1-0.6); MONO % 11.2 % (1.7-9.3); PLATELET COUNT 439 K/mm3 (130-400); RED BLOOD COUNT 2.32 M/mm3 (4.10-5.30); REDCELL DISTRIBUTION WIDTH-CV 17.7 % (11.5-14.5)
[2019-04-26 06:45] LABS: CALCIUM 9.7 mg/dL (8.4-10.2); CREATININE, serum 1.05 (0.52-1.25); MAGNESIUM 2.3 mg/dL (1.6-2.3); POTASSIUM 4.6 mmol/L (3.4-5.0)
[2019-04-26 07:03] LABS: INR 1.8 (0.8-3.0); PROTHROMBIN TIME 21.1 SECONDS (9.7-12.8)
[2019-04-26 07:11] LABS: HEMATOCRIT 23.8 % (37.0-47.0); HEMOGLOBIN 7.5 g/dl (12.5-16.0); MEAN CORPUSCULAR HEMOGLOBIN 32 pg (27.0-31.0)
--- NOTE | 2019-04-26 09:34 | NUR ---
SW presented the IM form to the pt; pt understood and signed the form. A copy was provided for the pt; original was placed in the chart. SW will continue to follow.
--- NOTE | 2019-04-26 10:14 | NUR ---
Report from RITESH Casillas. Pt sat up on side of bed for breakfast and to take pills one at a time with water and followed with crackers. SBA with rollator to toilet w/ riser and groom at sink. Dressing to R hip has shadowing present. Wore SCDs at [facility] per report. Tylenol for sternal and r hip pain. Returned pt's own anxiety med, flonase, and eye drops.
[2019-04-26] MEDS ORDERED: FERROUS SU325 MG/TAB PO (10:46)
[2019-04-26] MEDS ORDERED: TOPROL XL 25MG25 MG PO (10:49)
[2019-04-26] MEDS ORDERED: NORCO 325 MG-51 TAB PO (10:49)
[2019-04-26] MEDS ORDERED: COUMADIN 2MG2 MG/TAB PO (10:57)
--- NOTE | 2019-04-26 11:02 | NUR ---
Calling Dr. Curry's ortho office regarding drainaing hematoma-like area to right hip incision. Was documented as MICHAEL 8/9, began draining "after pt rolled in bed with therapy"
--- NOTE | 2019-04-26 11:05 | NUR ---
The pt is to discharge home today, 04/26 with [facility]. SW to fax discharge orders. There are no addtional needs at this time.
--- NOTE | 2019-04-26 11:17 | NUR ---
Dressing changed to rt hip, edges well approximated, fresh blood on folded gauze 4x4s, no visible opening. Applied folded 4x4 gauzes with tegaderm, traced with marker approximate border of subcutaneous hematoma, brusining in that area light blue. Pt jenifer well. Given anxiety pill per request.
--- NOTE | 2019-04-26 12:37 | NUR ---
Per Dr. Patricio Villanueva's ortho nurse, ordered to place hip spica with thad wraps to RLE for three days- home health may re-adjust as needed. If drainage continues after third day, need to call ortho office and make a follow up appointment for sooner than currently scheduled.
--- NOTE | 2019-04-26 13:20 | NUR ---
Explained to pt we could not disp HS meds to her upon discharge this afternoon.
--- NOTE | 2019-04-26 16:00 | NUR ---
Changed dressing to rt elbow, two small 0.25cm scabs, intact. New mepilex applied.
--- NOTE | 2019-04-26 17:45 | NUR ---
Reviewed discharge instructions with pt and caregiver Mabel, discharged at this time.
--- NOTE | 2019-04-26 19:58 | NUR ---
Christina, joint nurse, applied Hip Spica to pt's RLE prior to discharge.
== END 2019-04-26 17:40 | disposition home health service (06) | DRG 560 ==
PROVIDERS: ADMIT Internal Medicine
DX: S72.011D Unspecified intracapsular fracture of right femur, subsequent encounter for closed fracture with routine healing (principal); I50.32 Chronic diastolic (congestive) heart failure; I11.0 Hypertensive heart disease with heart failure; I48.2 Chronic atrial fibrillation; E78.5 Hyperlipidemia, unspecified; D64.9 Anemia, unspecified; H40.9 Unspecified glaucoma; W18.39XD Other fall on same level, subsequent encounter; I08.3 Combined rheumatic disorders of mitral, aortic and tricuspid valves; J44.9 Chronic obstructive pulmonary disease, unspecified; I25.10 Atherosclerotic heart disease of native coronary artery without angina pectoris; H35.30 Unspecified macular degeneration; E03.9 Hypothyroidism, unspecified; M81.0 Age-related osteoporosis without current pathological fracture; K59.00 Constipation, unspecified; Z79.01 Long term (current) use of anticoagulants; Z95.0 Presence of cardiac pacemaker; Z86.73 Personal history of transient ischemic attack (TIA), and cerebral infarction without residual deficits; Z90.710 Acquired absence of both cervix and uterus; Z88.8 Allergy status to other drugs, medicaments and biological substances; Z88.9 Allergy status to unspecified drugs, medicaments and biological substances
CPT/HCPCS: 99222-AI; 99232-AI; 99233-AI; 99239; J1650